=== PATIENT | male | born 1935 | race Caucasian/White ===

== ENCOUNTER 2020-08-27 10:07 | Inpatient (IN) | payer MEDICARE, MEDICAID, SELFPAY ==
[2020-08-27] VITALS (41 sets, daily range): BP systolic 107–152; BP diastolic 46–73; PULSE 54–88; RESP 0–26; TEMP 12.2–37.1; O2SAT 88–100; BMI 21.2
--- NOTE | 2020-08-27 10:17 | ECG_ITS ---
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 Measurements Intervals [place] Rate: 67 P: 57 AK: 189 QRS: 12 QRSD: 96 T: 31 QT: 429 QTc: 453 Interpretive Statements SINUS RHYTHM MINIMAL VOLTAGE CRITERIA FOR LVH, CONSIDER NORMAL VARIANT [MEETS CRITERIA IN ONE OF: R(aVL), S(V1), R(V5), R(V5/V6)+S(V1)] Compared to ECG 03/24/2019 21:07:27 Sinus bradycardia no longer present Electronically Signed On 08-27-2020 19:22:05 CDT by Musa Alves M.D. [id number]
--- NOTE | 2020-08-27 10:20 | ED_ITS ---
HPI - SOB/Dyspnea General: Chief Complaint: Shortness of Breath/Dyspnea Stated Complaint: resp failure Time Seen by Provider: 08/27/20 10:09 History of Present Illness: HPI Narrative: This patient is an 84-year-old male presenting from [facility]. He had a positive cocaine test on or about August 19. He has been receiving treatment at the residential including dexamethasone and prophylactic Lovenox. He was sent to the ED this morning due to increasing oxygen requirements. Per residential staff his oxygen saturation was about 78% on room air. They put him on 2 L of oxygen his oxygen did come up to 94%. He was also borderline hypotensive there with a blood pressure of 96 systolic. EMS treated with IV Solu-Medrol, subcu terbutaline and continued oxygen. On arrival the patient's sats were mid to high 90s on 2 L. Blood pressure is 122/46. Heart rate 66. He is tachypneic but in no overt respiratory distress. He is very hard of hearing and has dementia and is not answering questions. His baseline mental status is apparently much more alert and conversational. MD elicited complaint: shortness of breath Pertinent past history: other (covid) Review of Systems General: Reports: ROS unobtainable due to medical condition [facility] ED PFSH: Medical History (Updated 08/27/20 @ 13:36 by Harrison Bangura MD) Alzheimer disease ASHD (arteriosclerotic heart disease) BPH (benign prostatic hyperplasia) Carotid stenosis, bilateral CKD (chronic kidney disease) CVA (cerebral vascular accident) GERD (gastroesophageal reflux disease) Hyperlipidemia Surgical History (Updated 08/27/20 @ 13:36 by Harrison Bangura MD) S/P carotid endarterectomy S/P hernia repair Family History (Updated 01/17/20 @ 08:41 by Leatha Sebastian RN) Father , AGE 62 CAD (coronary artery disease) Myocardial infarction Physical Exam Const: COMMON NORMALS: no acute distress and alert GENERAL APPEARANCE: cooperative and comfortable HENMT: HEAD & SCALP: normal to inspection FACE & SINUS: normal facial exam Eye: GENERAL EYE: appearance normal, both eyes and all related structures Neck/C-Spine: COMMON NORMALS: supple, no meningeal signs and no JVD Chest: COMMONS NORMALS: normal inspection of the chest Resp: EFFORT & INSPECTION: Yes tachypneic and Yes uses accessory muscles AUSCULTATION: rales (mild, scattered) Cardio: COMMON NORMALS: no JVD, regular rate, regular rhythm and No murmurs present (Cardio) RATE: regular rate RHYTHM: regular rhythm GI: COMMON NORMALS: Normal to inspection, nondistended, normoactive bowel sounds present, Soft to palpation and non-tender INSPECTION: Yes normal to inspection AUSCULTATION: Yes normoactive bowel sounds PALPATION: Yes Soft to palpation Back/Pelvis: COMMON NORMALS: thoracic and lumbar spine normal to inspection Extremity: COMMON NORMALS: normal to inspection Neuro: COMMON NORMALS: moves all extremities, no focal motor deficits and no sensory deficits noted SENSORIUM/ORIENTATION: Yes alert and Yes other (Very hard of hearing, only answering simple questions) MENINGEAL SIGNS: Yes no meningeal signs Psych: COMMON NORMALS: mental status grossly normal, cooperative and normal affect Skin: COMMON NORMALS: no rashes or lesions noted and turgor normal GENERAL SKIN EXAM: no rashes or lesions noted and turgor normal Course ED course: This patient from the residential was reportedly very hypoxic. He has not been hypoxic here and on 2 L of oxygen his sats are in the mid 90s. His main issue seems to be a decreased mental status. He does have dementia but normally is alert and talkative. Today he is most definitely not. I spoke with his son as well as Dr. Teena Funes and confirm that he is a full code. Because of this we will admit him to the hospital to maximize treatment. We will continue him on oxygen and consider remdesivir. 1 dose was given in the ED but as he has not been hypoxic here in the hospital he may not be a good candidate to continue that. Vital Signs: Vital signs: Vital Signs Temperature 97.7 F 08/28/20 00:00 Pulse Rate 60 08/28/20 04:46 Respiratory Rate 27 H 08/28/20 01:40 Blood Pressure 152/73 08/28/20 01:40 Pulse Oximetry 94 08/28/20 04:46 MDM - SOB/Dyspnea Lab Data: Labs: Lab Results 08/27/20 08/27/20 08/27/20 Range/Units 09:47 09:47 09:47 WBC 7.1 (4.0-10.0) 10^3/ uL RBC 4.04 L (4.1-5.3) 10^6/u L Hgb 11.0 L (11.7-16.6) g/dL Hct 36.2 L (42.0-52.0) % MCV 89.6 (80-94) fL MCH 27.2 L (28.0-34.0) pg MCHC 30.4 (30.0-36.0) g/dL RDW 14.2 (12.1-15.1) % Plt Count 177 (130-400) 10^3/c mm MPV 10.1 (7.4-10.4) fL Neut % (Auto) 85.8 % Lymph % (Auto) 7.2 % Kingfisher % (Auto) 6.2 % Eos % (Auto) 0.0 % Baso % (Auto) 0.1 % Neut # (Auto) 6.07 (1.8-7.7) 10^3/u L Lymph # (Auto) 0.5 L (0.8-4.8) 10^3/u L Kingfisher # (Auto) 0.4 (0.2-0.9) 10^3/u L Eos # (Auto) 0.0 (0.0-0.8) 10^3/u L Baso # (Auto) 0.0 (0.0-0.1) 10^3/u L Nucleated RBC % (a uto) 0 % Nucleated RBCs # 0.0 /100WBC PT 13.40 (12.1-14.9) SECO NDS INR 0.99 (0.8-1.2) Fibrinogen 626 H (174-498) mg/dL D-Dimer 0.67 H (0-0.59) ug/mIFE U Sodium 139 (136-145) mmol/L Potassium 3.6 (3.5-5.1) mmol/L Chloride 103 (98-107) mmol/L Carbon Dioxide 27 (22-29) mmol/L Anion Gap 12.6 (5-19) BUN 14 (8-23) mg/dL Creatinine 1.2 (0.7-1.2) mg/dL GFR Calculation Not Reportable Glucose 122 H (65-115) mg/dL Calculated Osmolal ity 290 (285-295) mOsm/k g Lactic Acid (0.5-2.2) mmol/L Calcium 8.8 (8.5-10.5) mg/dL Total Bilirubin 0.4 (0.15-1.2) mg/dL AST 23 (0-40) U/L ALT 18 (0-41) U/L Alkaline Phosphata se 64 (40-130) IU/L C-Reactive Protein 120.5 H (0.0-4.9) mg/L NT-Pro-B Natriuret Pep 837 H (0-450) pg/mL Total Protein 6.3 L (6.6-8.7) g/dL Albumin 3.6 (3.5-5.2) g/dL Globulin 2.7 (1.3-4.6) g/dL Procalcitonin 0.12 (0-0.5) ng/mL TSH (0.27-4.20) uIU/ mL 08/27/20 08/27/20 Range/Units 09:47 11:22 WBC (4.0-10.0) 10^3/ uL RBC (4.1-5.3) 10^6/u L Hgb (11.7-16.6) g/dL Hct (42.0-52.0) % MCV (80-94) fL MCH (28.0-34.0) pg MCHC (30.0-36.0) g/dL RDW (12.1-15.1) % Plt Count (130-400) 10^3/c mm MPV (7.4-10.4) fL Neut % (Auto) % Lymph % (Auto) % Kingfisher % (Auto) % Eos % (Auto) % Baso % (Auto) % Neut # (Auto) (1.8-7.7) 10^3/u L Lymph # (Auto) (0.8-4.8) 10^3/u L Kingfisher # (Auto) (0.2-0.9) 10^3/u L Eos # (Auto) (0.0-0.8) 10^3/u L Baso # (Auto) (0.0-0.1) 10^3/u L Nucleated RBC % (a uto) % Nucleated RBCs # /100WBC PT (12.1-14.9) SECO NDS INR (0.8-1.2) Fibrinogen (174-498) mg/dL D-Dimer (0-0.59) ug/mIFE U Sodium (136-145) mmol/L Potassium (3.5-5.1) mmol/L Chloride (98-107) mmol/L Carbon Dioxide (22-29) mmol/L Anion Gap (5-19) BUN (8-23) mg/dL Creatinine (0.7-1.2) mg/dL GFR Calculation Glucose (65-115) mg/dL Calculated Osmolal ity (285-295) mOsm/k g Lactic Acid 1.3 (0.5-2.2) mmol/L Calcium (8.5-10.5) mg/dL Total Bilirubin (0.15-1.2) mg/dL AST (0-40) U/L ALT (0-41) U/L Alkaline Phosphata se (40-130) IU/L C-Reactive Protein (0.0-4.9) mg/L NT-Pro-B Natriuret Pep (0-450) pg/mL Total Protein (6.6-8.7) g/dL Albumin (3.5-5.2) g/dL Globulin (1.3-4.6) g/dL Procalcitonin (0-0.5) ng/mL TSH 1.85 (0.27-4.20) uIU/ mL Discharge Plan Discharge Patient Disposition: Admitted As Inpatient Admit Provider: Harrison Bangura Clinical Impression: COVID-19 Altered mental state Qualifiers: Altered mental status type: unspecified Qualified Code(s): R41.82 - Altered mental status, unspecified Condition: Stable Discharge Date/Time: 08/27/20 16:42 Coding Level of Care Code ED 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
[2020-08-27 10:34] LABS: Basophils % 0.1 %; Hematocrit 36.2 % (42.0-52.0); Lymphocytes # 0.5 10^3/uL (0.8-4.8); Lymphocytes % 7.2 %; Mean Corpuscular HGB Conc 30.4 g/dL (30.0-36.0); Mean Corpuscular Hemoglobin 27.2 pg (28.0-34.0); Mean Corpuscular Volume 89.6 fL (80-94); Mean Platelet Volume 10.1 fL (7.4-10.4); Monocytes # 0.4 10^3/uL (0.2-0.9); Monocytes % 6.2 %; Neutrophils # 6.07 10^3/uL (1.8-7.7); Neutrophils % 85.8 %; Nucleated Red Blood Cells % 0 %; Platelet Count 177 10^3/cmm (130-400); Red Blood Count 4.04 10^6/uL (4.1-5.3); Red Cell Distribution Width 14.2 % (12.1-15.1); White Blood Count 7.1 10^3/uL (4.0-10.0)
[2020-08-27 10:39] LABS: Fibrinogen 626 mg/dL (174-498); INR 0.99 (0.8-1.2)
[2020-08-27 10:42] LABS: D Dimer 0.67 ug/mIFEU (0-0.59)
[2020-08-27 10:56] LABS: Alanine Aminotransferase 18 U/L (0-41); Albumin Level 3.6 g/dL (3.5-5.2); Alkaline Phosphatase 64 IU/L (40-130); Anion Gap 12.6 (5-19); Aspartate Amino Transferase 23 U/L (0-40); Blood Urea Nitrogen 14 mg/dL (8-23); Calcium 8.8 mg/dL (8.5-10.5); Carbon Dioxide 27 mmol/L (22-29); Chloride 103 mmol/L (98-107); Globulin 2.7 g/dL (1.3-4.6); Glucose 122 mg/dL (65-115); NT Pro B Type Natriuretic Pept 837 pg/mL (0-450); Osmolality Calculated 290 mOsm/kg (285-295); Potassium 3.6 mmol/L (3.5-5.1); Sodium 139 mmol/L (136-145); Total Bilirubin 0.4 mg/dL (0.15-1.2); Total Protein 6.3 g/dL (6.6-8.7)
--- NOTE | 2020-08-27 11:07 | XR_ITS ---
WS: [id number] Portable AP upright chest, 08/27/2020 Clinical Data: COVID, hypoxia Comparison: Portable chest, 03/24/2019. Findings: There are patchy opacities overlying both diaphragms which may represent pneumonia and/or a telectasis. The upper lobes are clear. No nodules, masses or effusions are seen. The heart is normal. The pulmonary vascularity is not increased. No pneumothorax is seen. The aortic arch and descending aorta are tortuous. XR/XR chest 1V portable [id number] Impression: 1. Minimal bilateral patchy opacities which may represent pneumonia and recomme nd follow-up chest x-ray in one to 2 days. 2. Atherosclerosis.
[2020-08-27 11:19] LABS: Procalcitonin 0.12 ng/mL (0-0.5)
[2020-08-27 11:29] LABS: C Reactive Protein 120.5 mg/L (0.0-4.9)
[2020-08-27 12:01] LABS: Lactic Sepsis W/Reflex 1.3 mmol/L (0.5-2.2)
--- NOTE | 2020-08-27 13:32 | CT_ITS ---
WS: [id number] CT CHEST ANGIOGRAPHY WITH REFORMATS HISTORY: covid TECHNIQUE: Contiguous axial images are obtained through the chest during arterial injection of intrav enous contrast. Images are reconstructed to evaluate the pulmonary arteries. MIP imaging also reviewe d. All CT scans at [facility] use at least one of these dose optimization techniques: aut omated exposure control; mA and/or kV adjustment per patient size (includes targeted exams where dose is matched to clinical indication); or iterative reconstruction. CONTRAST: Visipaque 320; 95 mL IV. DLP: 582.67 mGy.cm COMPARISON: None available. No central pulmonary emboli. Very good opacification of the pulmonary arteries through the segmental branches. Subsegmental branches in the lower lung byrne are partially obscured by atelectasis and ai rspace disease. Pulmonary artery size is enlarged. Mild atherosclerosis aorta. No aneurysm or dissect ion. Hyperinflated lungs with mild groundglass attenuation and dependent changes at the lung bases. No den se areas of consolidation. There is mild peripheral groundglass attenuation. 5 mm nodule RIGHT upper lobe. Mildly enlarged hilar mediastinal lymph nodes. High LEFT paratracheal lymph node measures 11 mm . These lymph nodes are probably reactive. Mild enlargement of the heart. No pericardial effusion. No pleural effusion. Mild tricuspid regurgitation into hepatic veins. Large RIGHT renal cysts. No adrenal mass. CT/CT angio chest PE protcl [id number] IMPRESSION: 1. No pulmonary embolism. 2. Mild ground glass attenuation and dependent changes in the lower lung field s. 5 mm RIGHT upper lobe nodule. Recommend follow-up chest CT in 6 months. 3. Mildly reactive lymphadenopathy. 4. Cardiomegaly. 5. Tricuspid regurgitation into hepatic veins.
--- NOTE | 2020-08-27 13:37 | PC.NURSE ---
Attempted to call report and told nurse not here yet.
[2020-08-27 14:27] LABS: Thyroid Stimulating Hormone 1.85 uIU/mL (0.27-4.20)
[2020-08-27] MEDS: iodixanol 320 mg/mL 100mL Btl IV (15:01)
--- NOTE | 2020-08-27 15:25 | PM.HP ---
Providers/Chief Complaint Admitting Physician: Harrison Bangura MD Primary Care Provider: Teena Funes MD Chief Complaint: resp failure History of Present Illness Morgan Martinez is a 84 year old male with past medical history of CVA, BPH, senile dementia, hyperlipidemia who was sent in from [facility] today because of worsening lethargy, mental status, found to be hypoxic to 70.6% on room air and up to 88% on 5 L nasal cannula. As per the nursing staff from [facility] patient tested +10 days ago for COVID-19 pneumonia has been treated with dexamethasone 6 mg and Lovenox 40 mg subcu daily. Patient has not had fever in last 24 to 36 hours. Patient has not had any nausea, vomiting, diarrhea. On examination patient respiratory lethargic, not able to answer any questions is confused, heart rate of 54 bpm, blood pressure 120/50, saturating 96% on 2 L nasal cannula, echo done the oxygen supplementation to 0 and his saturation maintained over 90% for 5 minutes. His blood work showed a white count of 7.1, hemoglobin of 11, platelet of 177, INR of 0.99, fibrinogen 626, d-dimer 0.67, sodium of 139, creatinine of 1.2, CRP of 120, proBNP of 837, chest x-ray showing bilateral patchy opacities concerning for pneumonia. He has been in hospital for treatment of COVID-19 pneumonia. Review of Systems General: Reports: ROS unobtainable due to mental status Medications/Allergies Home Medications Medication Instructions Recorded Confirmed Last Taken Type donepezil 10 mg tablet 10 mg PO DAILY 01/17/20 08/27/20 08/27/20 History finasteride 5 mg tablet 5 mg PO DAILY 01/17/20 08/27/20 08/26/20 History gabapentin 100 mg capsule 100 mg PO BEDTIME 01/17/20 08/27/20 08/26/20 History levothyroxine 25 mcg capsule 25 mcg PO DAILY 01/17/20 08/27/20 08/27/20 History lisinopril 20 mg tablet 20 mg PO DAILY 01/17/20 08/27/20 08/27/20 History loratadine 10 mg tablet 10 mg PO DAILY 01/17/20 08/27/20 08/27/20 History metoprolol tartrate 25 mg tablet 25 mg PO BID 01/17/20 08/27/20 08/27/20 History nitroglycerin 0.4 mg sublingual 0.4 mg SUBLINGUAL Q5M PRN 01/17/20 08/27/20 Unknown History tablet sertraline 25 mg tablet 75 mg PO DAILY tab 01/17/20 08/27/20 08/26/20 History tamsulosin 0.4 mg capsule 0.4 mg PO DAILY 01/17/20 08/27/20 08/26/20 History acetaminophen 650 mg PO Q4H PRN 08/27/20 08/27/20 07/30/20 History bisacodyl 5 mg PO DAILY PRN 08/27/20 08/27/20 Unknown History bisacodyl 10 mg GA DAILY PRN 08/27/20 08/27/20 Unknown History clonidine HCl 0.1 mg PO Q8H PRN 08/27/20 08/27/20 Unknown History enoxaparin [Lovenox] 40 mg SUBCUT DAILY 08/27/20 08/27/20 08/26/20 History hydrocodone-acetaminophen 1 tab PO Q8H PRN 08/27/20 08/27/20 08/26/20 History magnesium hydroxide [Milk of 30 ml PO DAILY 08/27/20 08/27/20 Unknown History Magnesia] ondansetron HCl [Zofran] 4 mg PO Q4H PRN 08/27/20 08/27/20 Unknown History polyethylene glycol 3350 [Miralax] 17 g PO DAILY PRN 08/27/20 08/27/20 Unknown History sodium phosphates [Enema] 118 ml GA DAILY PRN 08/27/20 08/27/20 Unknown History travoprost [Travatan Z] 1 drp OPHTHALMIC (EYE) QPM 08/27/20 08/27/20 08/26/20 History vit C-E-zinc qss-eocynh-eldite 2 tab PO DAILY 08/27/20 08/27/20 08/27/20 [facility] Allergies Allergy/AdvReac Type Severity Reaction Status Date / Time nortriptyline Allergy Unknown Unknown Unverified 01/17/20 08:35 topiramate [From Topamax] Allergy Unknown Unknown Unverified 01/17/20 08:35 PFSH Acute PFSH: Medical History (Updated 08/27/20 @ 13:36 by Harrison Bangura MD) Alzheimer disease ASHD (arteriosclerotic heart disease) BPH (benign prostatic hyperplasia) Carotid stenosis, bilateral CKD (chronic kidney disease) CVA (cerebral vascular accident) GERD (gastroesophageal reflux disease) Hyperlipidemia Surgical History (Updated 08/27/20 @ 13:36 by Harrison Bangura MD) S/P carotid endarterectomy S/P hernia repair Family History (Updated 01/17/20 @ 08:41 by Leatha Sebastian RN) Father , AGE 62 CAD (coronary artery disease) Myocardial infarction Vitals/I&O/Wt Last Vital Signs Temp 98.8 F 08/27/20 10:26 Pulse 75 08/27/20 14:49 Resp 24 H 08/27/20 14:49 BP 122/51 08/27/20 14:49 Pulse Ox 98 08/27/20 14:49 Weight last 48 hrs Weight 70.851 kg Physical Exam Narrative: EXAM NARRATIVE: General: Confused, no acute distress, AO x1, at baseline he is AO x1-2, fairly active as per the nurse HEENT: PERRLA, pupils bilaterally equal and reactive Chest: Bilateral bronchial breath sounds, occasional rhonchi, good air entry bilaterally, saturating 92% on room air CVS: S1-S2 regular, no murmurs, no tachycardia, no gallops, no rubs Abdomen: Soft, nontender, no organomegaly, bowel sounds present Neuro: No focal deficits, no facial deformity, AO x3, power 5/5 in all limbs Data : 08/27/20 09:47 08/27/20 09:47 A&P Assessment and plan (1) COVID-19: Status: Acute (2) Altered mental state: Status: Acute Qualifiers: Altered mental status type: unspecified Qualified Code(s): R41.82 - Altered mental status, unspecified (3) Alzheimer disease: Status: Acute (4) CKD (chronic kidney disease): Status: Acute (5) CVA (cerebral vascular accident): Status: Acute (6) Carotid stenosis, bilateral: Status: Acute Additional A&P Information Acute hypoxic respiratory failure because of COVID-19 pneumonia: As per the prison documentation patient required 5 L nasal cannula supplementation to maintain saturation over 90%. Currently on room air saturating 92%. We will monitor inflammatory markers including fibrinogen, ferritin, d-dimer, CRP, LDH. CTA PE to rule out PE. For now start him on antiviral treatment with Remdesevir for 3 to 5 days. Will discontinue in 3 days if patient is not requiring any oxygen. Dexamethasone 6 mg IV daily. For now start patient on Eliquis 5 mg twice daily. Advair, Spiriva Vitamin C, zinc. Tessalon Perles. Oxygen supplementation keeping saturation 90%. Check blood cultures, sputum culture, urine Legionella, bacterial antigen, sputum culture, MRSA swab, procalcitonin. Chances of bacterial pneumonia are low right now. Start patient on levofloxacin 500 mg daily as per the creatinine clearance for now. Last echocardiogram from 2014 shows an EF of 70% with grade 1 diastolic dysfunction with mild aortic calcification and mild AI. We will repeat an echocardiogram. Normal saline at 50 cc/h for now. Altered mental status: Could be because of viral prodrome or sepsis from COVID-19 along with worsening of Alzheimer's dementia. We will do CT head. ABG stat to rule out hypercapnia. Hypertension: Goal blood pressure less than 140/90 mmHg. For now continue home dose of metoprolol 25 mg twice daily, lisinopril 20 mg daily. Check TSH, iron panel, lipid panel, HbA1c. Patient will be on steroids. Will monitor blood sugar levels and if required will start on insulin sliding scale. Continue other chronic medications like donepezil, levothyroxine 25 mcg, sertraline. History of carotid stenosis, CVA: Patient does not seem to be on any aspirin. We will check lipid panel. Start patient on aspirin 81 mg daily. As per the prison documentation patient is full code. Patient's healthcare proxy is Timur Martinez and Amrik Martinez. #4 Amrik Martinez is [phone]. Full code. Protonix for PUD prophylaxis Cardiac GI soft diet for now. Attestations Medical Necessity Statement*: Admit to viral ICU for more than 2 midnights for altered mental status, COVID-19 pneumonia leading to hypoxia Time Spent in Patient Care: Greater than 35 minutes (>than 50% of time spent in counselling and/or direct pt care on unit). 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
--- NOTE | 2020-08-27 15:29 | PC.NURSE ---
Dr Palmer saw pt at bedside at approx 1515, and placed pt on room air.
[2020-08-27] MEDS: dexamethasone 4 mg/mL INJ 6 MG IVP (15:44)
--- NOTE | 2020-08-27 15:50 | USCV_ITS ---
Morgan Martinez Age: 84 Gender: M : 1935 Exam Date: 08/27/2020 15:55 Ordering Phys: Harrison Bangura MD Technologist: Jeaneth Motta [place] [facility]: COVID WITH SEVERE RESP PROBLEMS BP: / HR: 65 Rhythm: Sinus Technical Quality: Adequate MEASUREMENTS (Male / Female) Normal Values 2D ECHO LV Diastolic Diameter PLAX 2.8 cm 4.2 - 5.9 / 3.9 - 5.3 cm LV Systolic Diameter PLAX 1.7 cm LV Chamber Size 2.7 cm IVS Diastolic Thickness 1.1 cm 0.6 - 1.0 / 0.6 - 0.9 cm IVS Systolic Thickness 1.5 cm LVPW Diastolic Thickness 1.7 cm 0.6 - 1.0 / 0.6 - 0.9 cm LVPW Systolic Thickness 1.9 cm RV Chamber Size 3.1 cm LVOT Diameter 2.0 cm LV Ejection Fraction 2D Teich 70.3 % LA Diameter 4.0 cm LA Width 3.5 cm LA Height 3.7 cm RA Width 3.8 cm RA Height 4.3 cm Aorta at Sinotubular Diameter 3.0 cm M-MODE LV Diastolic Diameter MM 4.9 cm 4.2 - 5.9 / 3.9 - 5.3 cm LV Systolic Diameter MM 2.1 cm LV Ejection Fraction MM Teich 86.5 % IVS Diastolic Thickness MM 1.0 cm 0.6 - 1.0 / 0.6 - 0.9 cm IVS Systolic Thickness MM 1.6 cm LVPW Diastolic Thickness MM 1.6 cm 0.6 - 1.0 / 0.6 - 0.9 cm LVPW Systolic Thickness MM 2.9 cm RV Diastolic Diameter MM 1.5 cm Aortic Annulus Diameter 3.4 cm LA Ao Ratio MM 1.3 MV E Point Septal Separation 0.6 cm DOPPLER AV Peak Velocity 142.0 cm/s LVOT Peak Velocity 87.0 cm/s AV Area Cont Eq vti 2.2 cm squared AV Area Cont Eq pk 2.0 cm squared MV Area PHT 3.4 cm squared Mitral E to A Ratio 1.2 MV E' Velocity 42.5 cm/s Mitral E to MV E' Ratio 13.3 Mitral E to LV E' Lateral Ratio 12.9 Mitral E to LV E' Septal Ratio 14.0 TR Peak Velocity 260.5 cm/s TR Peak Gradient 27.1 mmHg TR Mean Velocity 182.8 cm/s TR Mean Gradient 15.6 mmHg TR Velocity Time Integral 80.8 cm TV Peak E Velocity 76.0 cm/s Right Atrial Pressure 3.0 mmHg Pulmonary Artery Systolic Pressu 30.1 mmHg PV Peak Velocity 82.0 cm/s RV Acceleration Time 0.1 s RV Ejection Time 0.3 s RV AcT/ET 0.4 FINDINGS Left Ventricle Normal left ventricular cavity size. Normal left ventricular systolic function. No regional wall motion abnormalities. Left ventricular ejection fraction is estimated at 70 %. and hyperdynamic Grade II/IV diastolic dysfunction, moderately elevated filling pressures. Right Ventricle The right ventricle is normal in size and function. Right Atrium The right atrium is normal in size. Left Atrium The left atrium is normal in size. Mitral Valve Structurally normal mitral valve without significant stenosis or prolapse. There is no mitral regurgitation. Aortic Valve Structurally normal aortic valve without significant sclerosis or stenosis. There is no aortic regurgitation. Tricuspid Valve Structurally normal tricuspid valve without significant stenosis or regurgitation. Pulmonary artery systolic pressure is normal. Pulmonic Valve Structurally normal pulmonic valve without significant stenosis. There is no pulmonic regurgitation. Pericardium Normal pericardium without effusion. Aorta Normal ascending aorta dimension. CONCLUSIONS 1-Normal left ventricular cavity size. Normal left ventricular systolic function. No regional wall motion abnormalities. Left ventricular ejection fraction is estimated at 70 %. and hyperdynamic Grade II/IV diastolic dysfunction, moderately elevated filling pressures. 2-There is no pericardial effusion. 3-Pulmonary artery systolic pressure is within normal limits. 4-No significant valve abnormalities. 5-Right atrial pressure is around 5 mm of mercury. 6-No significant change since the prior echocardiogram study of 03/17/2015. Neftaly Finley MD (Electronically Signed) Final Date: 27 August 2020 17:39 S
[2020-08-27 16:09] LABS: ABG PCO2 42.9 mmHg (35-45); ABG PH Result 7.36 (7.35-7.45); Base Excess ABG -1.2 mmol/L (-2.0-2.0); HCO3 ABG 24.3 mmol/L (22-26); PO2 ABG 60.1 mmHg (80.0-100.0)
[2020-08-27 16:10] LABS: Blood Gas Operator Identificat MONRO; Oxygen Device NC; Oxygen Saturation ABG 91.2; Potassium Level - ABG 3.7 mmol/L (3.5-5.0)
[2020-08-27 16:11] LABS: Arterial Blood Gas Hematocrit 35.4 % (42-52); Blood Gas Sample Site R RADIAL; Blood Gas Sample Type ARTERIAL; Ionized Calcium Level - ABG 1.2 mmol/L (1.1-1.4)
[2020-08-27 16:12] LABS: Carboxyhemoglobin 0.8 %THgb (0.4-20.1); HGB O2 Sat 90.4 % (95-100); Methemoglobin 0.1 % (0.4-1.5); Total Hemoglobin 11.5 g/dL (14-18)
--- NOTE | 2020-08-27 16:15 | PC.NURSE ---
Called VICU unit at 1615, informed ED that they still not ready for patient
[2020-08-27] MEDS: sodium chloride 0.9% 1,000 ML 50 ML IV (18:07)
[2020-08-27] MEDS: benzonatate 100 mg Capsule PO (18:07)
[2020-08-27] MEDS: metoprolol tartrate 25 mg Tablet PO (18:26)
[2020-08-27] MEDS: apixaban 5 mg Tablet PO (18:26)
[2020-08-27] MEDS: azithromycin 500 MG in sodium chloride 0.9% 250 ML 250 MG IV (18:27)
--- NOTE | 2020-08-27 18:40 | PC.RESP ---
Attempted to start Incentive spirometer and acapella, patient confused, unable to hear due to hearing aid batteries being , and unable to follow commands at this time. RT will try again.
[2020-08-27] MEDS: LORazepam 2 mg/mL INJ 1 mL 1 MG IM (20:04)
--- NOTE | 2020-08-27 20:20 | PC.NURSE ---
This nurse responded to bed alarm of the patient, and found patient trying to climb out of bed, patient was confused. Nurse assisted the patient back into the bed but the patient grabbed the nurses forearms and squeezed them screaming, 'this is not right, Lord help me . This nurse and other nursing staff attempted to calm patient but patient is hard of hearing and seemed to not hear anything nursing staff was saying. The patient ripped out IV in the right forearm and began bleeding on bed linens, PT had soiled underwear and needed changed. 3 nursing staff assisted pt to bedside commode, changed linens, and changed pt clothing. The patient continued to yell and aggressively grab nursing staff and squeeze their arms. Provider Dr. Warren was notified and new orders were received. This nurse administered 1 mg Ativan IM in the left deltoid. PT was assisted back to bed and BROILER SUPERVISOR stayed at the bedside until pt was asleep. Bed alarm on.
[2020-08-28] VITALS (42 sets, daily range): BP systolic 149–191; BP diastolic 56–88; PULSE 0–81; RESP 1–29; TEMP 36.4–36.9; O2SAT 89–97
--- NOTE | 2020-08-28 03:27 | PC.NURSE ---
Morphine 2 mg IV given for back pain. Patient was grunting. Changed position to left side.
[2020-08-28 04:45] LABS: ABG PCO2 41.5 mmHg (35-45); ABG PH Result 7.41 (7.35-7.45); Arterial Blood Gas Hematocrit 34.1 % (42-52); Base Excess ABG 1.6 mmol/L (-2.0-2.0); Blood Gas Allen Test Pos; Blood Gas Sample Site Radial, left; Blood Gas Sample Type Arterial; HCO3 ABG 26.4 mmol/L (22-26); Oxygen Device NC; PO2 ABG 61.3 mmHg (80.0-100.0)
--- NOTE | 2020-08-28 06:00 | XR_ITS ---
WS: [id number] Portable AP upright chest, 08/28/2020 Clinical Data: covid Comparison: 08/27/2020 Findings: Bilateral patchy lower lobe opacities are still present. No nodules, masses or effusions ar e seen. The heart is normal. The pulmonary vascularity is not increased. No pneumothorax is seen. Th e aortic arch and descending aorta are tortuous. The diaphragms are flattened. XR/XR chest 1V portable [id number] Impression: 1. Bilateral lower lobe patchy opacities unchanged which are consistent with pn eumonia. 2. Hyperinflation and atherosclerosis.
[2020-08-28 07:16] LABS: Fibrinogen 554 mg/dL (174-498)
[2020-08-28 07:17] LABS: Hematocrit 27.7 % (42.0-52.0); Hemoglobin 8.6 g/dL (11.7-16.6); Lymphocytes # 0.5 10^3/uL (0.8-4.8); Lymphocytes % 8.2 %; Mean Corpuscular Hemoglobin 27.5 pg (28.0-34.0); Mean Corpuscular Volume 88.5 fL (80-94); Mean Platelet Volume 10.2 fL (7.4-10.4); Monocytes # 0.2 10^3/uL (0.2-0.9); Monocytes % 3.5 %; Nucleated Red Blood Cells % 0 %; Platelet Count 204 10^3/cmm (130-400); Red Blood Count 3.13 10^6/uL (4.1-5.3); Red Cell Distribution Width 14.3 % (12.1-15.1)
[2020-08-28 07:25] LABS: Alanine Aminotransferase 15 U/L (0-41); Albumin Level 3.5 g/dL (3.5-5.2); Alkaline Phosphatase 62 IU/L (40-130); Anion Gap 14.8 (5-19); Aspartate Amino Transferase 18 U/L (0-40); Blood Urea Nitrogen 18 mg/dL (8-23); Calcium 8.3 mg/dL (8.5-10.5); Carbon Dioxide 25 mmol/L (22-29); Chloride 104 mmol/L (98-107); Globulin 2.2 g/dL (1.3-4.6); Glucose 133 mg/dL (65-115); Magnesium 1.9 mg/dL (1.7-2.3); Osmolality Calculated 294 mOsm/kg (285-295); Phosphorus 3.1 mg/dL (2.5-4.5); Potassium 3.8 mmol/L (3.5-5.1); Sodium 140 mmol/L (136-145); Total Bilirubin 0.4 mg/dL (0.15-1.2); Total Protein 5.7 g/dL (6.6-8.7)
[2020-08-28 07:27] LABS: Creatine Phosphokinase 119 U/L (39-308); Ferritin 227 ng/mL (30-400); Lactate Dehydrogenase 220 U/L (135-225); NT Pro B Type Natriuretic Pept 758 pg/mL (0-450)
[2020-08-28 07:37] LABS: Estmated Average Glucose 108; Hemoglobin A1C 5.4 % (4.0-6.0)
--- NOTE | 2020-08-28 08:19 | PC.RESP ---
PATIENT RESIDES IN A SNF AND DOES NOT QUALIFY FOR PULMONARY REHAB AT THIS TIME.
[2020-08-28] MEDS: ascorbic acid 500 mg Tablet PO (09:50)
[2020-08-28] MEDS: apixaban 5 mg Tablet PO ×2 (09:50→17:23)
[2020-08-28] MEDS: benzonatate 100 mg Capsule PO ×3 (09:51→22:23)
[2020-08-28] MEDS: finasteride 5 mg Tablet PO (09:52)
[2020-08-28] MEDS: pantoprazole DR 40 mg Tablet PO (09:53)
[2020-08-28] MEDS: metoprolol tartrate 25 mg Tablet PO (09:53)
[2020-08-28] MEDS: lisinopril 20 mg Tablet PO (09:53)
[2020-08-28] MEDS: loratadine 10 mg Tablet PO (09:53)
[2020-08-28] MEDS: levothyroxine 25 mcg Tablet PO (09:53)
[2020-08-28] MEDS: HYDROcodone-acetaminophen 10-325 mg Tablet 1 TAB PO ×2 (09:55→17:24)
[2020-08-28] MEDS: zinc gluconate 50 mg Tablet PO (09:55)
[2020-08-28] MEDS: sertraline 50 mg Tablet 75 MG PO (09:55)
[2020-08-28] MEDS: tamsulosin 0.4 mg Capsule PO (09:55)
--- NOTE | 2020-08-28 10:53 | P.PN_ITS ---
Subjective Subjective: Interval history: Overnight patient has remained confused and sometimes agitated. He required Ativan. He is not requiring any oxygen to maintain his saturation over 90%. On my examination he is calm and comfortably lying in bed. He is not in any distress. He is still confused. Patient is not able to participate in pulmonary toilet with Acapella or incentive spirometry. He is not able to participate in taking inhalation treatment as well. He denies any nausea, vomiting, headache. As per the nursing staff patient did have his meal. Vitals/I&O/Wt Last Vital Signs Temp 97.6 F 08/28/20 08:00 Pulse 60 08/28/20 08:56 Resp 22 H 08/28/20 08:56 BP 154/88 08/28/20 08:00 Pulse Ox 91 08/28/20 08:56 08/27/20 08/28/20 08/28/20 22:59 06:59 14:59 Intake Total 100 / 100 Balance 100 / 100 Weight last 48 hrs Weight 68.402 kg Weight 70.851 kg Physical Exam Narrative: EXAM NARRATIVE: General: Confused, no acute distress, AO x1, at baseline he is AO x1-2, fairly active as per the nurse HEENT: PERRLA, pupils bilaterally equal and reactive Chest: Bilateral bronchial breath sounds, occasional rhonchi, good air entry bilaterally, saturating 92% on room air CVS: S1-S2 regular, no murmurs, no tachycardia, no gallops, no rubs Abdomen: Soft, nontender, no organomegaly, bowel sounds present Neuro: No focal deficits, no facial deformity, AO x3, power 5/5 in all limbs Data : 08/28/20 04:15 08/28/20 04:15 Micro: Microbiology 08/27/20 16:46 Blood Culture - Preliminary Blood SPECIMEN COLLECTED 08/27/20 16:46 Blood Culture - Preliminary Blood SPECIMEN COLLECTED A&P Assessment and plan (1) COVID-19: Status: Acute (2) Altered mental state: Status: Acute Qualifiers: Altered mental status type: unspecified Qualified Code(s): R41.82 - Alt ered mental status, unspecified (3) Alzheimer disease: Status: Acute (4) CKD (chronic kidney disease): Status: Acute (5) CVA (cerebral vascular accident): Status: Acute (6) Carotid stenosis, bilateral: Status: Acute Additional A&P Information COVID-19 pneumonia: Hypoxia resolved and currently patient continues to maintain saturation on room air. We will monitor inflammatory markers including fibrinogen, ferritin, d-dimer, CRP, LDH. CTA PE to rule out PE. For now start him on antiviral treatment with Remdsivir for 3 to 5 days. For now we will plan to continue treatment for 3 days. Day 2 today. Dexamethasone 6 mg IV daily. Eliquis 5 mg twice daily. Advair, Spiriva Vitamin C, zinc. Tessalon Perles. Oxygen supplementation keeping saturation 90%. Procalcitonin, blood cultures have remained negative. All other tests results awaited. Chances of bacterial pneumonia are low right now. Start patient on levofloxacin 500 mg daily as per the creatinine clearance for now. Echocardiogram shows an EF of 70% with grade 2 diastolic dysfunction normal pulmonary artery pressures. Patient is euvolemic. Altered mental status: Could be because of viral prodrome or sepsis from COVID- 19 along with worsening of Alzheimer's dementia. We will do CT head. No hypercapnia on ABG. Hypertension: Goal blood pressure less than 140/90 mmHg. Blood pressure elevated. Patient's heart rate is going down to high 50s. Decrease metoprolol dose to 12.5 mg twice daily, continue with lisinopril 20 mg daily. Add amlodipine 10 mg daily first dose right now. Continue other chronic medications like donepezil, levothyroxine 25 mcg, sertraline. History of carotid stenosis, CVA: Patient does not seem to be on any aspirin. We will check lipid panel. Start patient on aspirin 81 mg daily. As per the senior living documentation patient is full code. Patient's healthcare proxy is Timur Martinez and Amrik Martinez. Discussed patient's CODE STATUS and goals of care with his DPOAE . Timur Martinez. He states patient had told him specifically in the past that his wishes are not to be intubated or be on a life support or any kind of chest compressions. CODE STATUS changed to system to DNR/DNI. Full code. Protonix for PUD prophylaxis Cardiac diet for now. Attestations Medical Necessity Statement*: COVID-19, Altered mental status Time Spent in Patient Care: Greater than 35 minutes (>than 50% of time spent in counselling and/or direct pt care on unit) . 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
[2020-08-28] MEDS: amlodipine 10 mg Tablet PO (14:49)
--- NOTE | 2020-08-28 15:34 | CT_ITS ---
WS: [id number] CT HEAD TECHNIQUE: Noncontrast CT of the head obtained from the skullbase to the vertex. CLINICAL INFORMATION: ams COMPARISON: None. DLP: 1350.[address] scans at [facility] use at least one of these dose optimization techniques: automat ed exposure control; mA and/or kV adjustment per patient size (includes targeted exams where dose is matched to clinical indication); or iterative reconstruction. FINDINGS: No evidence of intracranial hemorrhage or mass effect. Ventricular system and basal cisterns are avila nt. Moderate small vessel changes moderate parenchymal volume loss. Chronic infarct right parietal lo be with encephalomalacia. Additional small chronic infarct in the right frontoparietal junction. No e xtra-axial fluid collections. No evidence of mass or mass effect. Normal munoz-white differentiation. Paranasal sinuses and mastoid air cells are well aerated. .Normal visualized soft tissues. CT/CT head wo con* [id number] IMPRESSION: 1. No evidence of intracranial hemorrhage or mass effect. 2. Moderate small vessel changes moderate parenchymal volume loss. 3. Chronic infarcts in the right parietal lobe with encephalomalacia. 4. No acute intracranial findings.
[2020-08-28] MEDS: dexamethasone 4 mg/mL INJ 6 MG IVP (15:39)
--- NOTE | 2020-08-28 16:07 | PC.NURSE ---
TAKEN TO CT SCAN WITH SECURITY & NURSE ESCORT. TAKEN PER WHEELCHAIR. TOLERATED WELL. CAN'T HEAR MUCH OF ANYTHING SAID TO HIM., BACK TO VICU WITHOUT INCIDENT.
[2020-08-28] MEDS: metoprolol tartrate 25 mg Tablet 12.5 MG PO (17:23)
[2020-08-28] MEDS: haloperidol inj 5 mg/mL INJ 1 mL 1 MG IM (17:54)
[2020-08-28] MEDS: donepezil 5 MG Tablet 10 MG PO (22:24)
[2020-08-28] MEDS: gabapentin 100 mg Capsule PO (22:24)
[2020-08-29] VITALS (20 sets, daily range): BP systolic 140–185; BP diastolic 58–124; PULSE 52–97; RESP 14–27; TEMP 36.7–36.8; O2SAT 92–99
[2020-08-29 02:40] LABS: Urine Appearance Clear (CLEAR); Urine Color Yellow (Yellow); pH Urine 6 (5-7)
[2020-08-29 02:41] LABS: Bilirubin Urine Neg (Negative); Blood Urine 3+ (Negative); Glucose Urine UA Norm (Normal); Ketones Urine Negative (Negative); Leukocyte Esterase Urine Negative (Negative); Nitrate Urine Negative (Negative); Protein Urine Neg (Negative); Urobilinogen Urine Norm (Negative)
[2020-08-29 02:42] LABS: RBC Urine 0-4 /hpf (0-2); Squamous Epithelial Cell Urine 0-4 /hpf (0-5); WBC Urine 0-4 /hpf (0-5)
[2020-08-29 02:43] LABS: Add Urine Culture? No; Amorphous Sediment Urine 2+ /hpf; Bacteria Urine 1+ /hpf
[2020-08-29 04:50] LABS: Basophils % 0.2 %; Hematocrit 36.5 % (42.0-52.0); Hemoglobin 11.4 g/dL (11.7-16.6); Lymphocytes # 0.7 10^3/uL (0.8-4.8); Lymphocytes % 5.2 %; Mean Corpuscular HGB Conc 31.2 g/dL (30.0-36.0); Mean Corpuscular Hemoglobin 27.5 pg (28.0-34.0); Mean Corpuscular Volume 88.2 fL (80-94); Monocytes # 0.4 10^3/uL (0.2-0.9); Monocytes % 3.3 %; Neutrophils # 11.27 10^3/uL (1.8-7.7); Neutrophils % 90.7 %; Nucleated Red Blood Cells % 0 %; Platelet Count 236 10^3/cmm (130-400); Red Blood Count 4.14 10^6/uL (4.1-5.3); Red Cell Distribution Width 14.2 % (12.1-15.1); White Blood Count 12.4 10^3/uL (4.0-10.0)
[2020-08-29 05:00] LABS: Alanine Aminotransferase 16 U/L (0-41); Albumin Level 3.8 g/dL (3.5-5.2); Alkaline Phosphatase 65 IU/L (40-130); Anion Gap 12.9 (5-19); Aspartate Amino Transferase 29 U/L (0-40); Blood Urea Nitrogen 22 mg/dL (8-23); Calcium 8.8 mg/dL (8.5-10.5); Carbon Dioxide 27 mmol/L (22-29); Chloride 104 mmol/L (98-107); Globulin 2.4 g/dL (1.3-4.6); Glucose 129 mg/dL (65-115); Osmolality Calculated 295 mOsm/kg (285-295); Potassium 3.9 mmol/L (3.5-5.1); Sodium 140 mmol/L (136-145); Total Bilirubin 0.3 mg/dL (0.15-1.2); Total Protein 6.2 g/dL (6.6-8.7)
[2020-08-29 05:02] LABS: C Reactive Protein 58.9 mg/L (0.0-4.9); Creatine Phosphokinase 311 U/L (39-308); Ferritin 272 ng/mL (30-400); Lactate Dehydrogenase 229 U/L (135-225); NT Pro B Type Natriuretic Pept 893 pg/mL (0-450)
[2020-08-29 05:03] LABS: Fibrinogen 461 mg/dL (174-498)
[2020-08-29 05:05] LABS: D Dimer 1.06 ug/mIFEU (0-0.59)
[2020-08-29] MEDS: levoFLOXacin 500 mg Tablet PO (06:10)
--- NOTE | 2020-08-29 08:03 | XRR_ITS ---
PROCEDURE INFORMATION: Exam: XR Chest, 1 View Exam date and time: 08/29/2020 11:14 AM Age: 84 years old Clinical indication: Shortness of breath; Additional info: Pna TECHNIQUE: Imaging protocol: XR of the chest Views: 1 view. COMPARISON: CR XR chest 1V portable [id number] 08/28/2020 5:52 AM FINDINGS: Lungs: There are again diffusely increased interstitial markings with patchy opacities at the lung bases, similar to prior. No dense lobar consolidation. Pleural space: Unremarkable. No evidence of pleural effusion or pneumothorax. Heart/Mediastinum: Unremarkable. No cardiomegaly. Bones/joints: Unremarkable. XR/XR chest 1V portable [id number] IMPRESSION: No significant interval change nonspecific increase in markings with mild patchy basilar opacities consistent with atypical pneumonia.
[2020-08-29] MEDS: apixaban 5 mg Tablet PO ×2 (09:16→18:55)
[2020-08-29] MEDS: benzonatate 100 mg Capsule PO ×3 (09:16→20:48)
[2020-08-29] MEDS: metoprolol tartrate 25 mg Tablet 12.5 MG PO ×2 (09:16→18:55)
[2020-08-29] MEDS: pantoprazole DR 40 mg Tablet PO (09:16)
[2020-08-29] MEDS: finasteride 5 mg Tablet PO (09:17)
[2020-08-29] MEDS: ascorbic acid 500 mg Tablet PO (09:17)
[2020-08-29] MEDS: loratadine 10 mg Tablet PO (09:17)
[2020-08-29] MEDS: tamsulosin 0.4 mg Capsule PO (09:17)
[2020-08-29] MEDS: lisinopril 20 mg Tablet PO (09:17)
[2020-08-29] MEDS: sertraline 50 mg Tablet 75 MG PO (09:17)
[2020-08-29] MEDS: levothyroxine 25 mcg Tablet PO (09:17)
[2020-08-29] MEDS: zinc gluconate 50 mg Tablet PO (09:17)
[2020-08-29] MEDS: amlodipine 10 mg Tablet PO (09:17)
[2020-08-29] MEDS: HYDROcodone-acetaminophen 10-325 mg Tablet 1 TAB PO ×3 (09:22→23:12)
--- NOTE | 2020-08-29 14:19 | PM.PN ---
Subjective Subjective: Interval history: No acute events overnight. Patient has remained confused. Which as per nursing staff and patient's son is his baseline. He has been. He is hard of hearing. Has remained on room air. As per the nurse he did not eat well. No further diarrhea. Vitals and labs noted. Vitals/I&O/Wt Last Vital Signs Temp 98.1 F 08/29/20 04:00 Pulse 65 08/29/20 11:35 Resp 16 08/29/20 11:35 BP 177/76 08/29/20 08:00 Pulse Ox 96 08/29/20 10:20 08/28/20 08/29/20 08/29/20 22:59 06:59 14:59 Intake Total 100 / 300 340 / 340 Output Total 120 / 120 0 / 120 400 / 400 Balance -20 / 180 0 / 180 -60 / -60 Weight last 48 hrs Weight 68.039 kg Weight 68.402 kg Physical Exam Narrative: EXAM NARRATIVE: General: Confused, no acute distress, AO x1, at baseline he is AO x1-2, fairly active as per the nurse HEENT: PERRLA, pupils bilaterally equal and reactive Chest: Bilateral bronchial breath sounds, occasional rhonchi, good air entry bilaterally, saturating 92% on room air CVS: S1-S2 regular, no murmurs, no tachycardia, no gallops, no rubs Abdomen: Soft, nontender, no organomegaly, bowel sounds present Neuro: No focal deficits, no facial deformity, AO x3, power 5/5 in all limbs Data : 08/29/20 03:45 08/29/20 03:45 Micro: Microbiology 08/28/20 14:30 Enteric Pathogens (PCR) - Final Stool Routine Collection Parasite Antigen Panel - Final C.difficile Toxin B Gene (PCR) - Final 08/27/20 14:30 MRSA Culture - Final Nose 08/29/20 00:28 Bacterial Antigens - Final Urine Kidney 08/29/20 00:28 Legionella Urinary Antigen - Final Urine,Voided 08/27/20 16:46 Blood Culture - Preliminary Blood NEGATIVE TO DATE 08/27/20 16:46 Blood Culture - Preliminary Blood NEGATIVE TO DATE A&P Assessment and plan (1) COVID-19: Status: Acute (2) Altered mental state: Status: Acute Qualifiers: Altered mental status type: unspecified Qualified Code(s): R41.82 - Altered mental status, unspecified (3) Alzheimer disease: Status: Acute (4) CKD (chronic kidney disease): Status: Acute (5) CVA (cerebral vascular accident): Status: Acute (6) Carotid stenosis, bilateral: Status: Acute Additional A&P Information COVID-19 pneumonia: Hypoxia resolved and currently patient continues to maintain saturation on room air. We will monitor inflammatory markers including fibrinogen, ferritin, d-dimer, CRP, LDH. CTA PE to rule out PE. For now start him on antiviral treatment with Remdsivir and will finish a 3-day course. Last dose today. Patient has remained on room air. Her his mentation is baseline as well. Dexamethasone 6 mg IV daily. Eliquis 5 mg twice daily. Most likely will get Eliquis for next 2 weeks. Advair, Spiriva Vitamin C, zinc. Tessalon Perles. Oxygen supplementation keeping saturation over 90%. Procalcitonin, blood cultures have remained negative. Patient's white count mildly elevated today. Will repeat chest x-ray and procalcitonin. No other signs of infection for now. Chances of bacterial pneumonia are low. For now continue with levofloxacin to finish a 5-day course. Echocardiogram shows an EF of 70% with grade 2 diastolic dysfunction normal pulmonary artery pressures. Patient is euvolemic. Altered mental status: Could be because of viral prodrome or sepsis from COVID-19 along with worsening of Alzheimer's dementia. We will do CT head. No hypercapnia on ABG. Hypertension: Goal blood pressure less than 140/90 mmHg. Blood pressure elevated. Patient's heart rate is going down to high 50s. Continue with decreased dose of metoprolol 25 mg twice daily, lisinopril 20 mg daily. Added amlodipine today. We will continue to monitor. Continue other chronic medications like donepezil, levothyroxine 25 mcg, sertraline. History of carotid stenosis, CVA: Patient does not seem to be on any aspirin. We will check lipid panel. As per the [facility]pc documentation patient is full code. Patient's healthcare proxy is Timur Silvaon and Amrik Martinez. Discussed patient's CODE STATUS and goals of care with his DPOAE Mr. Timur Martinez. He states patient had told him specifically in the past that his wishes are not to be intubated or be on a life support or any kind of chest compressions. CODE STATUS changed to system to DNR/DNI. Protonix for PUD prophylaxis Cardiac diet for now. Attestations Medical Necessity Statement*: Altered mental status, COVID-19 pneumonia, hypoxia resolved Time Spent in Patient Care: Greater than 35 minutes (>than 50% of time spent in counselling and/or direct pt care on unit). 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
[2020-08-29] MEDS: dexamethasone 4 mg/mL INJ 6 MG IVP (14:27)
[2020-08-29 15:05] LABS: Procalcitonin 0.18 ng/mL (0-0.5)
[2020-08-29] MEDS: donepezil 5 MG Tablet 10 MG PO (20:48)
[2020-08-29] MEDS: gabapentin 100 mg Capsule PO (20:48)
[2020-08-30] VITALS: BP 183/79; PULSE 78; RESP 16; O2SAT 92
[2020-08-30] MEDS: acetaminophen 325 mg Tablet 650 MG PO (03:38)
[2020-08-30 04:00] VITALS: BP 163/73; PULSE 60; RESP 16; TEMP 36.9; O2SAT 92
--- NOTE | 2020-08-30 05:37 | PC.NURSE ---
PT IS A 1:1. PT IS CONFUSED AND NEEDS CONSTANT REDIRECTION. PT WAS UP AND DOWN THROUGHOUT THE NIGHT. PT C/O PAIN PRN NORCO WAS GIVEN. PT ALSO HAD SOME HALLUCINATIONS STATES THAT THEY ARE ACTIVELY SEEING BUGS. TECH REDIRECTED PT. PT IS ANXIOUS AND WANTS TO LEAVE. WILL CONTINUE TO MONITOR.
--- NOTE | 2020-08-30 06:00 | XRR_ITS ---
PROCEDURE INFORMATION: Exam: XR Chest, 1 View Exam date and time: 08/30/2020 5:15 AM Age: 84 years old Clinical indication: Other: Respiratory failure; Additional info: Covid TECHNIQUE: Imaging protocol: XR of the chest Views: 1 view. COMPARISON: CR XR chest 1V portable [id number] 08/29/2020 11:13 AM FINDINGS: Lungs: There are again diffusely increased interstitial markings similar to prior. Patchy alveolar opacity at the left lateral lung base again noted. Slight improvement aeration right lung base. Pleural space: Unremarkable. No evidence of pleural effusion or pneumothorax. Heart/Mediastinum: Cardiac silhouette upper normal. Bones/joints: Unremarkable. XR/XR chest 1V portable [id number] IMPRESSION: Diffusely increased interstitial markings with small patchy alveolar opacity left lateral lung base, unchanged. Slight improvement aeration right lung base. No new abnormality.
[2020-08-30 06:22] LABS: Basophils % 0.1 %; Hematocrit 37.2 % (42.0-52.0); Hemoglobin 11.7 g/dL (11.7-16.6); Lymphocytes # 0.6 10^3/uL (0.8-4.8); Lymphocytes % 5.3 %; Mean Corpuscular HGB Conc 31.5 g/dL (30.0-36.0); Mean Corpuscular Hemoglobin 27.2 pg (28.0-34.0); Mean Corpuscular Volume 86.5 fL (80-94); Mean Platelet Volume 9.7 fL (7.4-10.4); Monocytes # 0.5 10^3/uL (0.2-0.9); Monocytes % 4.8 %; Neutrophils # 9.89 10^3/uL (1.8-7.7); Neutrophils % 89.4 %; Nucleated Red Blood Cells % 0 %; Platelet Count 289 10^3/cmm (130-400); Red Cell Distribution Width 14.1 % (12.1-15.1); White Blood Count 11.1 10^3/uL (4.0-10.0)
[2020-08-30 07:01] LABS: Alanine Aminotransferase 17 U/L (0-41); Albumin Level 3.5 g/dL (3.5-5.2); Alkaline Phosphatase 87 IU/L (40-130); Aspartate Amino Transferase 33 U/L (0-40); Blood Urea Nitrogen 21 mg/dL (8-23); Calcium 8.9 mg/dL (8.5-10.5); Carbon Dioxide 24 mmol/L (22-29); Chloride 104 mmol/L (98-107); Globulin 2.9 g/dL (1.3-4.6); Glucose 114 mg/dL (65-115); Osmolality Calculated 294 mOsm/kg (285-295); Sodium 140 mmol/L (136-145); Total Bilirubin 0.4 mg/dL (0.15-1.2); Total Protein 6.4 g/dL (6.6-8.7)
[2020-08-30 07:10] LABS: Anion Gap 16.2 (5-19); C Reactive Protein 28.7 mg/L (0.0-4.9); Ferritin 222 ng/mL (30-400); NT Pro B Type Natriuretic Pept 564 pg/mL (0-450); Potassium 4.2 mmol/L (3.5-5.1)
[2020-08-30 07:55] LABS: Lactate Dehydrogenase 285 U/L (135-225)
[2020-08-30 08:00] VITALS: BP 148/82; PULSE 60; RESP 18; TEMP 36.6; O2SAT 93
[2020-08-30] MEDS: amlodipine 10 mg Tablet PO (08:57)
[2020-08-30] MEDS: levothyroxine 25 mcg Tablet PO (08:57)
[2020-08-30] MEDS: apixaban 5 mg Tablet PO (08:57)
[2020-08-30] MEDS: benzonatate 100 mg Capsule PO (08:57)
[2020-08-30] MEDS: ascorbic acid 500 mg Tablet PO (08:57)
[2020-08-30] MEDS: lisinopril 20 mg Tablet PO (08:57)
[2020-08-30] MEDS: finasteride 5 mg Tablet PO (08:57)
[2020-08-30] MEDS: tamsulosin 0.4 mg Capsule PO (08:58)
[2020-08-30] MEDS: loratadine 10 mg Tablet PO (08:58)
[2020-08-30] MEDS: metoprolol tartrate 25 mg Tablet 12.5 MG PO (08:58)
[2020-08-30] MEDS: pantoprazole DR 40 mg Tablet PO (08:58)
[2020-08-30] MEDS: sertraline 50 mg Tablet 75 MG PO (08:58)
[2020-08-30] MEDS: zinc gluconate 50 mg Tablet PO (08:59)
[2020-08-30 09:50] VITALS: PULSE 62; RESP 18; O2SAT 94
--- NOTE | 2020-08-30 09:58 | PC.SOCIAL ---
Pg 2 IMM Explained to pt's family Pg 2 IMM, via phone. No questions voiced. Signed, dated, & timed copy for chart.
--- NOTE | 2020-08-30 11:02 | P.DS_ITS ---
Discharge Providers Date of Admission: 08/27/20 13:18 Date of Discharge: August 30, 2020 Attending Provider at Admission: Harrison Bangura MD Attending Provider at Discharge: Harrison Bangura MD Primary Care Provider: Teena Funes MD Diagnoses at Discharge Discharge Diagnosis (1) COVID-19: Status: Acute (2) Altered mental state: Status: Acute Qualifiers: Altered mental status type: unspecified Qualified Code(s): R41.82 - Altered mental status, unspecified (3) Alzheimer disease: Status: Acute (4) CKD (chronic kidney disease): Status: Acute (5) CVA (cerebral vascular accident): Status: Acute (6) Carotid stenosis, bilateral: Status: Acute Reason for Visit Reason for Visit: resp failure Hospital Course Discharge Summary: Morgan Martinez is a 84 year old male with past medical history of CVA, BPH, senile dementia, hyperlipidemia who was sent in from [facility] today because of worsening lethargy, mental status, found to be hypoxic to 70.6% on room air and up to 88% on 5 L nasal cannula. As per the nursing staff from [facility] patient tested +10 days ago for COVID-19 pneumonia has been treated with dexamethasone 6 mg and Lovenox 40 mg subcu daily. Patient has not had fever in last 24 to 36 hours. Patient has not had any nausea, vomiting, diarrhea. On examination patient respiratory lethargic, not able to answer any questions is confused, heart rate of 54 bpm, blood pressure 120/50, saturating 96% on 2 L nasal cannula, echo done the oxygen supplementation to 0 and his saturation maintained over 90% for 5 minutes. His blood work showed a white count of 7.1, hemoglobin of 11, platelet of 177, INR of 0.99, fibrinogen 626, d-dimer 0.67, sodium of 139, creatinine of 1.2, CRP of 120, proBNP of 837, chest x-ray showing bilateral patchy opacities concerning for pneumonia. He has been in hospital for treatment of COVID-19 pneumonia. He was admitted to the hospital and was started on antiviral treatment along with IV steroids and inhalation treatment. During hospitalization patient did not require any supplemental oxygenation and remained over 90% on room air. He has finished a course of 3 days of antiviral treatment and as he is not requiring any oxygen it has been stopped after 3 days. Patient has been at his baseline mentation because of advanced dementia. Patient's care and goals of care were discussed with his healthcare proxy/son Mr. Timur Martinez. He states patient has never wanted any kind of heroic measures and would not want any intubation or chest compression. His CODE STATUS has been changed to DNR/DNI. As patient has remained hemodynamically stable and maintaining his saturations over 90% on room air since admission he has been discharged back to long term after finishing his antibiotic course for 3 days. He supposed to take anticoagulation for next 2 weeks. During hospitalization he was found to have elevated blood pressures for which amlodipine has been added to his medications. He supposed to be on oral steroids for next 2 weeks which should be tapered off after that. He supposed to see his primary care provider within next 1 to 3 days. Physical Exam Narrative: EXAM NARRATIVE: General: Confused, no acute distress, AO x1, at baseline he is AO x1-2, fairly active as per the nurse HEENT: PERRLA, pupils bilaterally equal and reactive Chest: Bilateral bronchial breath sounds, occasional rhonchi, good air entry bilaterally, saturating 92% on room air CVS: S1-S2 regular, no murmurs, no tachycardia, no gallops, no rubs Abdomen: Soft, nontender, no organomegaly, bowel sounds present Neuro: No focal deficits, no facial deformity, AO x3, power 5/5 in all limbs Discharge Data Data Completed and Pending: Completed Studies During Hospitalization Category Date Time Status CT angio chest PE protcl [id number] Urge nt Cat Scan 08/27/20 13:[address] head wo con* 7 0450 Routine Cat Scan 08/28/20 15:34 Completed XR chest 1V mynor ble [id number] Q48H Exams 08/28/20 06:00 Completed XR chest 1V mynor ble [id number] Q48H Exams 08/30/20 06:00 Completed XR chest 1V mynor ble [id number] Routine Exams 08/29/20 08:03 Completed XR chest 1V mynor ble [id number] Stat Exams 08/27/20 11:07 Completed CV echo complete* [id number] Routine Ultrasound 08/27/20 15:50 Completed Pending at discharge Category Date Time Status XR chest 1V mynor ble [id number] Q48H Exams 09/01/20 06:00 Ordered Arterial Blood Ga s Full Stat Lab 08/27/20 15:54 Results Blood Culture Sta t Lab 08/27/20 16:46 Results Blood Culture Sta t Lab 08/29/20 19:15 Results D Dimer Routine Lab 08/30/20 08:13 Ordered Fibrinogen Routin e Lab 08/30/20 08:13 Ordered Sputum Culture an d Gram Stain Stat Lab 08/27/20 13:34 Uncollected Labs from last 24 hours 08/30/20 08/30/20 08/30/20 03:55 03:55 03:55 WBC RBC Hgb Hct MCV MCH MCHC RDW Plt Count MPV Neut % (Auto) Lymph % (Auto) [place] % (Auto) Eos % (Auto) Baso % (Auto) Neut # (Auto) Lymph # (Auto) [place] # (Auto) Eos # (Auto) Baso # (Auto) Nucleated RBC % (a uto) Nucleated RBCs # Fibrinogen Cancelled D-Dimer Cancelled Sodium 140 Potassium 4.2 Chloride 104 Carbon Dioxide 24 Anion Gap 16.2 BUN 21 Creatinine 0.8 GFR Calculation Not Reportable Glucose 114 Calculated Osmolal ity 294 Calcium 8.9 Ferritin 222 Total Bilirubin 0.4 AST 33 ALT 17 Alkaline Phosphata se 87 Lactate Dehydrogen ase 285 H C-Reactive Protein 28.7 H NT-Pro-B Natriuret Pep 564 H Total Protein 6.4 L Albumin 3.5 Globulin 2.9 Procalcitonin 08/30/20 08/29/20 03:55 03:45 WBC 11.1 H RBC 4.30 Hgb 11.7 Hct 37.2 L MCV 86.5 MCH 27.2 L MCHC 31.5 RDW 14.1 Plt Count 289 MPV 9.7 Neut % (Auto) 89.4 Lymph % (Auto) 5.3 [place] % (Auto) 4.8 Eos % (Auto) 0.0 Baso % (Auto) 0.1 Neut # (Auto) 9.89 H Lymph # (Auto) 0.6 L [place] # (Auto) 0.5 Eos # (Auto) 0.0 Baso # (Auto) 0.0 Nucleated RBC % (a uto) 0 Nucleated RBCs # 0.0 Fibrinogen D-Dimer Sodium Potassium Chloride Carbon Dioxide Anion Gap BUN Creatinine GFR Calculation Glucose Calculated Osmolal ity Calcium Ferritin Total Bilirubin AST ALT Alkaline Phosphata se Lactate Dehydrogen ase C-Reactive Protein NT-Pro-B Natriuret Pep Total Protein Albumin Globulin Procalcitonin 0.18 Vitals: Last Vital Signs Temp 97.8 F 08/30/20 08:00 Pulse 60 08/30/20 08:00 Resp 18 08/30/20 08:00 BP 148/82 08/30/20 08:00 Pulse Ox 93 08/30/20 08:00 Discharge Plan Discharge Patient Disposition: Xfer SNF Condition: Stable Prescriptions: New Vitamin C 500 mg Tablet 500 mg PO DAILY 14 Days Qty: 14 RF: 0 amlodipine 10 mg Tablet 10 mg PO DAILY Qty: 30 RF: 0 benzonatate 100 mg Capsule 100 mg PO TID PRN (Reason: cough) 10 Days Qty: 30 RF: 0 zinc gluconate 50 mg Tablet 50 mg PO DAILY Qty: 30 RF: 0 Eliquis 5 mg Tablet 5 mg PO BID 14 Days Qty: 28 RF: 0 dexamethasone 6 mg tablet 6 mg PO DAILY Qty: 14 RF: 0 Continued donepezil 10 mg tablet 10 mg PO DAILY RF: 0 finasteride 5 mg tablet 5 mg PO DAILY RF: 0 gabapentin 100 mg capsule 100 mg PO BEDTIME RF: 0 levothyroxine 25 mcg capsule 25 mcg PO DAILY RF: 0 lisinopril 20 mg tablet 20 mg PO DAILY RF: 0 loratadine 10 mg tablet 10 mg PO DAILY RF: 0 sertraline 25 mg tablet 75 mg PO DAILY RF: 0 tamsulosin 0.4 mg capsule 0.4 mg PO DAILY RF: 0 metoprolol tartrate 25 mg tablet 25 mg PO BID RF: 0 nitroglycerin [Nitrostat] 0.4 mg tablet, sublingual 0.4 mg SUBLINGUAL Q5M PRN (Reason: Chest Pain) RF: 0 clonidine HCl 0.1 mg Tablet 0.1 mg PO Q8H PRN (Reason: Hypertension) RF: 0 acetaminophen 325 mg Tablet 650 mg PO Q4H PRN (Reason: Pain) RF: 0 Miralax 17 gram Powder In Packet 17 g PO DAILY PRN (Reason: Constipation) RF: 0 Zofran 4 mg Tablet 4 mg PO Q4H PRN (Reason: Nausea) RF: 0 Travatan Z 0.004 % Drops 1 drp OPHTHALMIC (EYE) QPM RF: 0 hydrocodone-acetaminophen 10-325 mg Tablet 1 tab PO Q8H PRN (Reason: Pain) RF: 0 Milk of Magnesia 400 mg/5 mL Suspension 30 ml PO DAILY RF: 0 bisacodyl 10 mg Suppository 10 mg MS DAILY PRN (Reason: Constipation) RF: 0 Enema 19-7 gram/118 mL Enema 118 ml MS DAILY PRN (Reason: Constipation) RF: 0 bisacodyl 5 mg Tablet 5 mg PO DAILY PRN (Reason: Constipation) RF: 0 Ocuvite Eye Health 50 mg-15 unit- 4.5 mg-2.5 mg Tablet,Chewable 2 tab PO DAILY RF: 0 Discontinued enoxaparin [Lovenox] 40 mg/0.4 mL Syringe 40 mg SUBCUT DAILY RF: 0 Discharge Orders: Discharge Order (Routine); Ordered 08/30/20 Ordered By: Harrison Bangura Referrals: Teena Funes MD [Primary Care Provider] - 1-3 days Discharge Diet: Usual diet Discharge Activity: Resume usual activity Patient Instructions: Dexamethasone (By mouth), Apixaban (By mouth), Alzheimer Disease (DC), Ischemic Stroke (DC), Contact Precautions (DC) Activity Restrictions/Additional Instructions: Eliquis for blood thinner for next 2 weeks. Oral dexamethasone for next 2 weeks. Wean off steroids gradually after that. Please follow-up with your primary care provider within next 1 to 3 days. Please call for an appointment. After discussion of goals of care with DPSHARMIN and son Timur Martinez patient is allow natural now. Discharge Attestations Time Spent in Discharge Care*: greater than 30 min Specific Discharge Activities: Specific discharge activities: educating and/or supporting family/caregiver, discussing with keycase assembler/social workers/dc planners, documenting/other paperwork and evaluating patient/reviewing data Status at Discharge: Cognitive status at discharge: moderately impaired cognition , Behavioral status at discharge: cooperative , Functional status at discharge: uses cane/walker Overall status at discharge: patient is back to baseline Quality Metrics Clinical Quality Measures During this hospital stay, did patient experience: None Coding Level of Care Code Acute 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
[2020-08-30 12:00] VITALS: BP 172/88; PULSE 85; RESP 18; TEMP 36.6; O2SAT 94
[2020-08-30 13:57] VITALS: BP 172/88; PULSE 85; RESP 18; TEMP 36.6; O2SAT 94
== END 2020-08-30 14:00 | disposition skilled nursing facility (03) | DRG 177 ==
LOC: ER 10:53 → ICU 13:19
PROVIDERS: Emergency Medicine; Admitting Provider Student in an Organized Health Care Education/Training Program; Family Provider Family Medicine; PCP Family Medicine; Visit Provider Student in an Organized Health Care Education/Training Program
DX: U07.1 COVID-19 (principal); J12.89 Other viral pneumonia; J96.01 Acute respiratory failure with hypoxia; Z86.73 Personal history of transient ischemic attack (TIA), and cerebral infarction without residual deficits; N40.0 Benign prostatic hyperplasia without lower urinary tract symptoms; G30.1 Alzheimer's disease with late onset; F02.80 Dementia in other diseases classified elsewhere, unspecified severity, without behavioral disturbance, psychotic disturbance, mood disturbance, and anxiety; E78.5 Hyperlipidemia, unspecified; I25.10 Atherosclerotic heart disease of native coronary artery without angina pectoris; I65.23 Occlusion and stenosis of bilateral carotid arteries; N18.9 Chronic kidney disease, unspecified; K21.9 Gastro-esophageal reflux disease without esophagitis; Z66 Do not resuscitate; Z79.891 Long term (current) use of opiate analgesic
CPT/HCPCS: 12345; 36415; 36600; 70450; 71045; 71275; 80051; 80053; 81001; 82550; 82728; 82803; 82810; 83036; 83605; 83615; 83735; 83880; 83986; 84100; 84145; 84443; 85025; 85378; 85384; 85610; 86140; 86403; 87040; 87205; 87449; 87493; 87506; 87641; 93005; 93306; 96372; 96375; 99284; J0456; J1100; J1630; J2060; J7030; J7050; Q9967

== ENCOUNTER 2021-02-04 16:24 | Emergency (ER) | payer MEDICARE, MEDICAID, SELFPAY ==
[2021-02-04 16:27] VITALS: BP 199/89; PULSE 80; RESP 26; TEMP 36.8; O2SAT 100; BMI 22.4
--- NOTE | 2021-02-04 16:27 | XR_ITS ---
WS: [id number] Portable AP upright chest, 02/04/2021 Clinical Data: cp Comparison: Portable chest, 08/30/2020. Findings: Minimal patchy interstitial markings are still seen. No nodules, masses or effusions are se en. The heart is normal. The pulmonary vascularity is not increased. No pneumonia or pneumothorax is seen. The aortic arch and descending aorta show calcification and mild tortuosity. Monitor leads are on the chest wall. XR/XR chest 1V portable [id number] Impression: 1. Mild bilateral interstitial markings which may be from chronic fibrosis. 2. Atherosclerosis.
--- NOTE | 2021-02-04 16:27 | ECG_ITS ---
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 Measurements Intervals [place] Rate: 82 P: 73 HI: 196 QRS: 40 QRSD: 98 T: 73 QT: 371 QTc: 435 Interpretive Statements SINUS RHYTHM NONSPECIFIC T-WAVE ABNORMALITY Compared to ECG 08/27/2020 11:01:07 T-wave abnormality now present Electronically Signed On 02-04-2021 17:11:52 RELATIONSHIP BANKER by Iván Shelley M.D. [id number] f
--- NOTE | 2021-02-04 16:47 | ED_ITS ---
HPI - Chest Pain General: Chief Complaint: Chest Pain Stated Complaint: CHEST PAIN/ HYPERTENSION Time Seen by Provider: 02/04/21 16:28 Source: old records reviewed Mode of arrival: EMS Limitations: altered mental status History of Present Illness: HPI narrative: 85-year-old male with history of severe dementia brought by EMS from senior living after concerned about his elevated blood pressures. They also state that he indicated he was having chest pain, and that his O2 sats at 1 time were in the 80s on room air. The patient himself is unable to provide any meaningful HPI due to severe dementia and severe hearing loss. Associated symptoms: Reports abdominal pain Review of Systems General: Reports: ROS unobtainable due to medical condition GI: Reports: abdominal pain and bloating PFSH ED PFSH: Medical History Alzheimer disease ASHD (arteriosclerotic heart disease) BPH (benign prostatic hyperplasia) Carotid stenosis, bilateral CKD (chronic kidney disease) CVA (cerebral vascular accident) GERD (gastroesophageal reflux disease) Hyperlipidemia Surgical History S/P carotid endarterectomy S/P hernia repair Family History Father , AGE 62 CAD (coronary artery disease) Myocardial infarction Physical Exam Const: COMMON NORMALS: no acute distress and average body habitus GENERAL APPEARANCE: cooperative, comfortable and well hydrated; not in distress, not anxious, not disheveled, not lethargic, not ill appearing and not frail appearing ORIENTATION/CONSCIOUSNESS: not lethargic HENMT: COMMON NORMALS: normocephalic and hearing grossly normal bilaterally HEAD & SCALP: normocephalic FACE & SINUS: normal facial exam and face symmetric Eye: COMMON NORMALS: Equal, round and reactive pupils present, EOMs intact bilaterally, conjunctivae normal and no scleral icterus ALIGNMENT: Yes alignment normal CONJUNCTIVA: Yes conjunctivae normal PUPIL: Yes Equal, round and reactive pupils present Neck/C-Spine: COMMON NORMALS: full ROM and no lymphadenopathy Chest: COMMONS NORMALS: normal inspection of the chest and normal palpation of entire chest wall CHEST: No localized rib tenderness with anteroposterior compression Resp: COMMON NORMALS: normal respiratory effort, No use of accessory muscles and clear to auscultation bilaterally AUSCULTATION: clear to auscultation bilaterally Cardio: COMMON NORMALS: S1 normal heart sound present and S2 normal heart sound present HEART SOUNDS: S1 normal heart sound present and S2 normal heart sound present GI: COMMON NORMALS: Soft to palpation and No hepatosplenomegaly present INSPECTION: No Anasarca, Yes abdominal distension and No Localized GI swelling present AUSCULTATION: Yes normoactive bowel sounds PALPATION: Yes Soft to palpation, Yes Tenderness to palpation present (GI) (Mild, lower abdomen), No Guarding due to palpation present (GI), No Rigid due to palpation and Yes No hepatosplenomegaly present Extremity: COMMON NORMALS: normal to inspection, full ROM and capillary refill normal Neuro: SENSORIUM/ORIENTATION: No lethargic and Yes other (Baseline mental status.) GAIT: Yes Normal gait present, No Antalgic gait present and No Ataxic gait present MOTOR EXAM: 5/5 motor strength present throughout, Pronator motor function not present and no tremor noted Skin: COMMON NORMALS: no rashes or lesions noted GENERAL SKIN EXAM: no rashes or lesions noted Course Vital Signs: Vital signs: Vital Signs Temperature 98.3 F 02/04/21 16:27 Pulse Rate 83 02/04/21 20:13 Respiratory Rate 16 02/04/21 20:13 Blood Pressure 151/74 02/04/21 20:13 Pulse Oximetry 92 02/04/21 20:13 MDM - Chest Pain MDM Narrative: Medical decision making narrative: 85-year-old male with history of dementia and hearing loss brought by EMS because of senior living staff concern that he was having a heart attack. The patient does not indicate any chest pain or difficulty breathing. He does complain of a distended abdomen, but is not especially tender on exam. Bladder scan does not show significant residual volume. UA does not indicate acute infection. The patient ambulated to the bathroom himself and had a large BM, afterwards he said his abdomen was back to normal and he was feeling ready to go home. No ischemic changes on serial EKGs, serial troponins also wnl He will be released back to senior living in stable condition. EKG; normal sinus rhythm at the rate of 82, OR 193, QRS 91, QTc 406, normal axis, no ST segment elevation or depression. 02/04/2021, 1840 Medical Records: Attestation: I reviewed the patient's medical records. Lab Data: Attestation: I reviewed the patient's lab results. Labs: Lab Results 02/04/21 02/04/21 02/04/21 Range/Units 16:30 16:30 16:30 WBC 5.2 (4.0-10.0) 10^3/ uL RBC 4.77 (4.1-5.3) 10^6/u L Hgb 12.7 (11.7-16.6) g/dL Hct 42.9 (42.0-52.0) % MCV 89.9 (80-94) fL MCH 26.6 L (28.0-34.0) pg MCHC 29.6 L (30.0-36.0) g/dL RDW 14.2 (12.1-15.1) % Plt Count 174 (130-400) 10^3/c mm MPV 9.4 (7.4-10.4) fL Neut % (Auto) 91.6 % Lymph % (Auto) 4.8 % Zavala % (Auto) 1.5 % Eos % (Auto) 1.5 % Baso % (Auto) 0.2 % Neut # (Auto) 4.77 (1.8-7.7) 10^3/u L Lymph # (Auto) 0.3 L (0.8-4.8) 10^3/u L Zavala # (Auto) 0.1 L (0.2-0.9) 10^3/u L Eos # (Auto) 0.1 (0.0-0.8) 10^3/u L Baso # (Auto) 0.0 (0.0-0.1) 10^3/u L Nucleated RBC % (a uto) 0 % Nucleated RBCs # 0.0 /100WBC Sodium 145 (136-145) mmol/L Potassium 4.1 (3.5-5.1) mmol/L Chloride 107 (98-107) mmol/L Carbon Dioxide 30 H (22-29) mmol/L Anion Gap 12.1 (5-19) BUN 18 (8-23) mg/dL Creatinine 1.2 (0.7-1.2) mg/dL GFR Calculation Not Reportable Glucose 86 (65-115) mg/dL POC Glucose (70-110) mg/dL Calculated Osmolal ity 301 H (285-295) mOsm/k g Calcium 8.7 (8.5-10.5) mg/dL Magnesium 1.9 (1.7-2.3) mg/dL Total Bilirubin 0.5 (0.15-1.2) mg/dL AST 16 (0-40) U/L ALT 9 (0-41) U/L Alkaline Phosphata se 93 (40-130) IU/L Troponin T Baselin e 15 (0-15) ng/L Troponin T 120 Min [place] (0-15) ng/L Delta Troponin T (0-10) ABS# NT-Pro-B Natriuret Pep 320 (0-450) pg/mL Total Protein 7.0 (6.6-8.7) g/dL Albumin 4.7 (3.5-5.2) g/dL Globulin 2.3 (1.3-4.6) g/dL Urine Color (Yellow) Urine Appearance (CLEAR) Urine pH (5-7) Ur Specific Gravit y (1.005-1.030) Urine Protein (Negative) Urine Glucose (UA) (Normal) Urine Ketones (Negative) Urine Blood (Negative) Urine Nitrate (Negative) Urine Bilirubin (Negative) Urine Urobilinogen (Negative) mg/dL Ur Leukocyte Bella ase (Negative) Urine RBC (0-2) /hpf Urine WBC (0-5) /hpf Ur Squamous Epith Cells (0-5) /hpf Amorphous Sediment Urine Bacteria (NONE) /hpf Hyaline Casts /lpf Urine Mucus /hpf 02/04/21 02/04/21 02/04/21 Range/Units 16:53 17:40 19:00 WBC (4.0-10.0) 10^3/ uL RBC (4.1-5.3) 10^6/u L Hgb (11.7-16.6) g/dL Hct (42.0-52.0) % MCV (80-94) fL MCH (28.0-34.0) pg MCHC (30.0-36.0) g/dL RDW (12.1-15.1) % Plt Count (130-400) 10^3/c mm MPV (7.4-10.4) fL Neut % (Auto) % Lymph % (Auto) % Zavala % (Auto) % Eos % (Auto) % Baso % (Auto) % Neut # (Auto) (1.8-7.7) 10^3/u L Lymph # (Auto) (0.8-4.8) 10^3/u L Z[place]ala # (Auto) (0.2-0.9) 10^3/u L Eos # (Auto) (0.0-0.8) 10^3/u L Baso # (Auto) (0.0-0.1) 10^3/u L Nucleated RBC % (a uto) % Nucleated RBCs # /100WBC Sodium (136-145) mmol/L Potassium (3.5-5.1) mmol/L Chloride (98-107) mmol/L Carbon Dioxide (22-29) mmol/L Anion Gap (5-19) BUN (8-23) mg/dL Creatinine (0.7-1.2) mg/dL GFR Calculation Glucose (65-115) mg/dL POC Glucose 87 (70-110) mg/dL Calculated Osmolal ity (285-295) mOsm/k g Calcium (8.5-10.5) mg/dL Magnesium (1.7-2.3) mg/dL Total Bilirubin (0.15-1.2) mg/dL AST (0-40) U/L ALT (0-41) U/L Alkaline Phosphata se (40-130) IU/L Troponin T Baselin e (0-15) ng/L Troponin T 120 Min [place] 13.94 (0-15) ng/L Delta Troponin T -1.06 L (0-10) ABS# NT-Pro-B Natriuret Pep (0-450) pg/mL Total Protein (6.6-8.7) g/dL Albumin (3.5-5.2) g/dL Globulin (1.3-4.6) g/dL Urine Color Yellow (Yellow) Urine Appearance Hazy A (CLEAR) Urine pH 5 (5-7) Ur Specific Gravit y 1.020 (1.005-1.030) Urine Protein Neg (Negative) Urine Glucose (UA) Norm (Normal) Urine Ketones Negative (Negative) Urine Blood Neg (Negative) Urine Nitrate Negative (Negative) Urine Bilirubin Neg (Negative) Urine Urobilinogen Norm (Negative) mg/dL Ur Leukocyte Bella ase Negative (Negative) Urine RBC 0-4 H (0-2) /hpf Urine WBC None (0-5) /hpf Ur Squamous Epith Cells 0-4 H (0-5) /hpf Amorphous Sediment Not Reportable Urine Bacteria Y (NONE) /hpf Hyaline Casts 0-4 H /lpf Urine Mucus 1+ /hpf Discharge Plan Discharge Patient Disposition: Home Clinical Impression: Elevated blood pressure reading, Normal exam Condition: Stable Prescriptions: No Action donepezil 10 mg tablet 10 mg PO DAILY@07 RF: 0 finasteride 5 mg tablet 5 mg PO DAILY@ RF: 0 gabapentin 100 mg capsule 100 mg PO DAILY@ RF: 0 levothyroxine 25 mcg capsule 25 mcg PO DAILY@ RF: 0 sertraline 25 mg tablet 75 mg PO DAILY@ RF: 0 tamsulosin 0.4 mg capsule 0.4 mg PO DAILY@ RF: 0 metoprolol tartrate 25 mg tablet 25 mg PO BID RF: 0 nitroglycerin [Nitrostat] 0.4 mg tablet, sublingual 0.4 mg SUBLINGUAL Q5M PRN (Reason: Chest Pain) RF: 0 clonidine HCl 0.1 mg Tablet 0.1 mg PO Q8H PRN (Reason: Hypertension) RF: 0 acetaminophen 325 mg Tablet 650 mg PO Q4H PRN (Reason: Pain) RF: 0 ondansetron HCl [Zofran] 4 mg Tablet 4 mg PO Q4H PRN (Reason: Nausea) RF: 0 hydrocodone-acetaminophen 10-325 mg Tablet 1 tab PO Q8H PRN (Reason: Pain) RF: 0 magnesium hydroxide [Milk of Magnesia] 400 mg/5 mL Suspension 30 ml PO DAILY PRN (Reason: Constipation) RF: 0 bisacodyl 10 mg Suppository 10 mg OR DAILY PRN (Reason: Constipation) RF: 0 Enema 19-7 gram/118 mL Enema 118 ml OR DAILY PRN (Reason: Constipation) RF: 0 bisacodyl 5 mg Tablet 10 mg PO DAILY PRN (Reason: Constipation) RF: 0 loratadine 10 mg Tablet 10 mg PO DAILY@07 RF: 0 Ocuvite Adult 50 Plus 250-5-1 mg Capsule 1 cap PO DAILY@07 RF: 0 Xanax 0.25 mg Tablet 0.25 mg PO TID@05,,17 RF: 0 Lumigan 0.01 % Drops 1 drp OPHTHALMIC (EYE) DAILY@19 RF: 0 Discharge Orders: Discharge ED (Routine); Ordered 02/04/21 Ordered By: Nidia Duckworth Referrals: Teena Funes MD [Primary Care Provider] - Discharge Diet: Advance as tolerated Discharge Activity: Increase activity as tolerated Activity Restrictions/Additional Instructions: Follow-up with your PCP in the next 3 to 5 days. Continue all medication as scheduled. Return immediately to the ER if you develop fever, abdominal pain, vomiting, or any other worsening symptoms. Coding Level of Care Code ED Abnormal Psychology Teacher for Chg Fwd Exam Comprehensive
[2021-02-04 16:50] LABS: Basophils % 0.2 %; Eosinophils # 0.1 10^3/uL (0.0-0.8); Eosinophils % 1.5 %; Hematocrit 42.9 % (42.0-52.0); Hemoglobin 12.7 g/dL (11.7-16.6); Lymphocytes # 0.3 10^3/uL (0.8-4.8); Lymphocytes % 4.8 %; Mean Corpuscular HGB Conc 29.6 g/dL (30.0-36.0); Mean Corpuscular Hemoglobin 26.6 pg (28.0-34.0); Mean Corpuscular Volume 89.9 fL (80-94); Mean Platelet Volume 9.4 fL (7.4-10.4); Monocytes # 0.1 10^3/uL (0.2-0.9); Monocytes % 1.5 %; Neutrophils # 4.77 10^3/uL (1.8-7.7); Neutrophils % 91.6 %; Nucleated Red Blood Cells % 0 %; Platelet Count 174 10^3/cmm (130-400); Red Blood Count 4.77 10^6/uL (4.1-5.3); Red Cell Distribution Width 14.2 % (12.1-15.1); White Blood Count 5.2 10^3/uL (4.0-10.0)
[2021-02-04 16:57] LABS: Glucose Point of Care 87 mg/dL (70-110)
[2021-02-04 17:00] VITALS: BP 154/67; PULSE 84; RESP 20; O2SAT 98
[2021-02-04 17:08] LABS: Alanine Aminotransferase 9 U/L (0-41); Albumin Level 4.7 g/dL (3.5-5.2); Alkaline Phosphatase 93 IU/L (40-130); Anion Gap 12.1 (5-19); Aspartate Amino Transferase 16 U/L (0-40); Blood Urea Nitrogen 18 mg/dL (8-23); Calcium 8.7 mg/dL (8.5-10.5); Carbon Dioxide 30 mmol/L (22-29); Chloride 107 mmol/L (98-107); Globulin 2.3 g/dL (1.3-4.6); Glucose 86 mg/dL (65-115); Magnesium 1.9 mg/dL (1.7-2.3); NT Pro B Type Natriuretic Pept 320 pg/mL (0-450); Osmolality Calculated 301 mOsm/kg (285-295); Potassium 4.1 mmol/L (3.5-5.1); Sodium 145 mmol/L (136-145); Total Bilirubin 0.5 mg/dL (0.15-1.2)
[2021-02-04 17:09] LABS: Troponin(5th) Baseline 15 ng/L (0-15)
[2021-02-04 18:04] VITALS: BP 194/131; PULSE 88; RESP 20
[2021-02-04 18:20] LABS: Add Urine Microscopic? YES; Bilirubin Urine Neg (Negative); Blood Urine Neg (Negative); Glucose Urine UA Norm (Normal); Ketones Urine Negative (Negative); Leukocyte Esterase Urine Negative (Negative); Nitrate Urine Negative (Negative); Protein Urine Neg (Negative); Urine Appearance Hazy (CLEAR); Urine Color Yellow (Yellow); Urobilinogen Urine Norm (Negative); pH Urine 5 (5-7)
--- NOTE | 2021-02-04 18:27 | ECG_ITS ---
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
[2021-02-04 18:37] LABS: Add Urine Culture? No; Bacteria Urine Y /hpf; Hyaline Casts Urine 0-4 /lpf; Mucus Urine 1+ /hpf; RBC Urine 0-4 /hpf (0-2); Squamous Epithelial Cell Urine 0-4 /hpf (0-5)
--- NOTE | 2021-02-04 18:48 | PC.NURSE ---
EKG done at 1838 and shown to ER doctor
--- NOTE | 2021-02-04 19:10 | PC.NURSE ---
This nurse taking over patient care at this time. Pt resting quietly in bed with son at bedside. Pt denies any needs at this time.
[2021-02-04 19:18] VITALS: BP 139/61; PULSE 81; RESP 24
[2021-02-04 19:28] LABS: Troponin 5 2HR 13.94 ng/L (0-15)
[2021-02-04 19:29] LABS: Troponin 5 2HR Delta -1.06 ABS# (0-10)
[2021-02-04 20:13] VITALS: BP 151/74; PULSE 83; RESP 16; O2SAT 92
== END 2021-02-04 20:15 | disposition home or self-care (01) ==
PROVIDERS: Family Medicine; Emergency Provider Family Medicine; PCP Family Medicine
DX: R03.0 Elevated blood-pressure reading, without diagnosis of hypertension (principal); G30.9 Alzheimer's disease, unspecified; F02.80 Dementia in other diseases classified elsewhere, unspecified severity, without behavioral disturbance, psychotic disturbance, mood disturbance, and anxiety; Z86.73 Personal history of transient ischemic attack (TIA), and cerebral infarction without residual deficits; E78.5 Hyperlipidemia, unspecified
CPT/HCPCS: 36415; 36416; 51798; 71045; 80053; 81001; 82962; 83735; 83880; 84484; 85025; 93005; 99284

== ENCOUNTER 2022-05-22 02:14 | Emergency (ER) | payer MEDICARE, MEDICAID, SELFPAY ==
[2022-05-22 02:21] VITALS: BP 146/82; PULSE 88; RESP 30; O2SAT 93; BMI 24.4
--- NOTE | 2022-05-22 02:46 | ECG_ITS ---
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 Measurements Intervals [place] Rate: 89 P: 78 FL: 177 QRS: 54 QRSD: 95 T: 72 QT: 396 QTc: 484 Interpretive Statements SINUS RHYTHM WITH SINUS ARRHYTHMIA Compared to ECG 02/04/2021 18:37:29 T-wave abnormality no longer present Electronically Signed On 05-22-2022 12:28:19 CDT by Iván Shelley M.D. [id number]
--- NOTE | 2022-05-22 02:46 | XRR_ITS ---
PROCEDURE INFORMATION: Exam: XR Chest Exam date and time: 05/22/2022 2:50 AM Age: 86 years old Clinical indication: Patient HX: Severe lethargy with fever. Patient non verbal. ; Additional info: AMS fever TECHNIQUE: Imaging protocol: Radiologic exam of the chest. Views: 1 view. COMPARISON: CR XR chest 1V portable [id number] 02/04/2021 4:47 PM FINDINGS: Lungs: Unremarkable. No consolidation. Pleural spaces: Unremarkable. No pleural effusion. No pneumothorax. Heart/Mediastinum: Unremarkable. No cardiomegaly. Bones/joints: Unremarkable. XR/XR chest 1V portable [id number] IMPRESSION: No acute findings.
--- NOTE | 2022-05-22 02:46 | CTR_ITS ---
PROCEDURE INFORMATION: Exam: CT Head Without Contrast Exam date and time: 05/22/2022 3:04 AM Age: 86 years old Clinical indication: Altered mental status/memory loss and fever; Patient HX: Severe lethargy with fever. Patient non verbal. ; Additional info: AMS TECHNIQUE: Imaging protocol: Computed tomography of the head without contrast. Radiation optimization: All CT scans at this facility use at least one of these dose optimization techniques: automated exposure control; mA and/or kV adjustment per patient size (includes targeted exams where dose is matched to clinical indication); or iterative reconstruction. COMPARISON: CT head wo con* [id number] 08/28/2020 3:33 PM RADIATION DOSE METRICS: Total DLP (mGy-cm): 836.57 FINDINGS: Brain: Stable hypoattenuation and encephalomalacia is seen within the right posterior parietal lobe. Diffuse hypoattenuation seen within the deep white matter of the frontal lobes bilaterally in a pattern suggesting diffuse vasogenic edema. There is effacement of the sulci within the frontal lobes bilaterally. Some mass effect is seen in the right frontal lobe, suspicious for an underlying mass. There are areas of hypoattenuation seen in the frontal cortices possibly representing combined frontal lobe infarctions as well. Cerebral ventricles: Ventriculomegaly of the lateral and 3rd ventricles is again seen similar to that present on 08/28/2020. However, there is some mass effect exerted on the anterior horns of the lateral ventricles, right more prominent than left. Paranasal sinuses: Mild mucosal thickening and fluid is seen within the ethmoidal sinuses bilaterally. New there is moderate diffuse cerebral atrophy. Patchy areas of hypoattenuation are seen in the deep white matter of the cerebral hemispheres bilaterally compatible with deep white matter microvascular disease. Mastoid air cells: Visualized mastoid air cells are well aerated. Bones/joints: Unremarkable. No acute fracture. Soft tissues: Unremarkable. CT/CT head wo con* [id number] IMPRESSION: 1. Diffuse prominent vasogenic edema the frontal lobes bilaterally with effacement of the frontal lobe sulci. There is mass effect seen within the right frontal lobe suspicious for an underlying mass. Other possibilities include bilateral frontal lobe abscesses, infectious etiologies or venous thrombosis. 2. Hypoattenuation extends into the frontal lobe cortices anteriorly suspicious for combined frontal lobe infarctions as well. 3. The tracheal megaly of the lateral and 3rd ventricles similar to that present on 08/28/2020 although there is some mass effect exerted on the anterior horns of the lateral ventricles, right more prominent than left. 4. Follow-up pre and post-contrast MRI imaging including diffusion-weighted imaging is suggested.
[2022-05-22 02:53] LABS: Basophils % 0.2 %; Eosinophils % 0.2 %; Hematocrit 42.6 % (42.0-52.0); Hemoglobin 13.6 g/dL (11.7-16.6); Lymphocytes # 1.2 10^3/uL (0.8-4.8); Lymphocytes % 11.3 %; Mean Corpuscular HGB Conc 31.9 g/dL (30.0-36.0); Mean Corpuscular Hemoglobin 27.4 pg (28.0-34.0); Mean Corpuscular Volume 85.9 fl (80-94); Mean Platelet Volume 10.4 fL (7.4-10.4); Monocytes # 0.7 10^3/uL (0.2-0.9); Monocytes % 6.9 %; Neutrophils # 8.35 10^3/uL (1.8-7.7); Neutrophils % 80.8 %; Nucleated Red Blood Cells % 0 %; Platelet Count 328 10^3/cmm (130-400); Red Blood Count 4.96 10^6/uL (4.1-5.3); Red Cell Distribution Width 14.5 % (12.1-15.1); White Blood Count 10.3 10^3/uL (4.0-10.0)
[2022-05-22 03:04] LABS: Alanine Aminotransferase 8 U/L (0-41); Albumin Level 3.7 g/dL (3.5-5.2); Alkaline Phosphatase 77 IU/L (40-130); Aspartate Amino Transferase 13 U/L (0-40); Blood Urea Nitrogen 24 mg/dL (8-23); C Reactive Protein 25.6 mg/L (0.0-4.9); Calcium 9.4 mg/dL (8.5-10.5); Carbon Dioxide 26 mmol/L (22-29); Chloride 108 mmol/L (98-107); Creatinine Clr Calc Pharmacy 49.5118; Globulin 3.1 g/dL (1.3-4.6); Glucose 127 mg/dL (65-115); Osmolality Calculated 310 mOsm/kg (285-295); Sodium 147 mmol/L (136-145); Total Bilirubin 0.4 mg/dL (0.15-1.2); Total Protein 6.8 g/dL (6.6-8.7)
[2022-05-22 03:06] VITALS: BP 157/97; PULSE 86; TEMP 36; O2SAT 96
[2022-05-22 03:15] LABS: ABG PCO2 41.9 mmHg (35-45); ABG PH Result 7.44 (7.35-7.45); Arterial Blood Gas Hematocrit 42.3 % (42-52); Base Excess ABG 3.8 mmol/L (-2.0-2.0); Blood Gas Allen Test Pos; Blood Gas LPM 2.5 %; Blood Gas Operator Identificat WALCI; Blood Gas Sample Site Radial, right; Blood Gas Sample Type Arterial; HCO3 ABG 28.4 mmol/L (22-26); Oxygen Device NC
[2022-05-22] MEDS: sodium chloride 0.9% 1,000 ML 999 ML IV (04:42)
[2022-05-22 04:47] LABS: Add Urine Microscopic? NO; Charge for UA Resulting for Rev
[2022-05-22 04:53] LABS: Bilirubin Urine 1+ (Negative); Blood Urine Neg (Negative); Glucose Urine UA Norm (Normal); Ketones Urine Negative (Negative); Leukocyte Esterase Urine Negative (Negative); Nitrate Urine Negative (Negative); Protein Urine Neg (Negative); Specific Gravity, Urine 1.025 (1.005-1.030); Urine Appearance Clear (CLEAR); Urine Color Yellow (Yellow); Urobilinogen Urine 1 mg/dL (Negative); pH Urine 5 (5-7)
[2022-05-22 05:19] LABS: Adenovirus Not Detected (NOT DETECT); Chlamydia Pneumoniae Not Detected (NOT DETECT); Coronavirus 229E,HKU1,NL63,OC4 Not Detected (NOT DETECT); Human Metapneumovirus Not Detected (NOT DETECT); Human Rhinovirus/Enterovirus Not Detected (NOT DETECT); Influenza A Not Detected (NOT DETECT); Influenza A H1 Not Detected (NOT DETECT); Influenza A H1-2009 Not Detected (NOT DETECT); Influenza A H3 Not Detected (NOT DETECT); Influenza B Not Detected (NOT DETECT); Mycoplasma Pneumoniae Not Detected (NOT DETECT); Parainfluenza Virus Type 1 Not Detected (NOT DETECT); Parainfluenza Virus Type 2 Not Detected (NOT DETECT); Parainfluenza Virus Type 3 Not Detected (NOT DETECT); Parainfluenza Virus Type 4 Not Detected (NOT DETECT); Respiratory Syncytial Virus A Not Detected (NOT DETECT); Respiratory Syncytial Virus B Not Detected (NOT DETECT); SARS-COV-2 Not Detected (NOT DETECT)
--- NOTE | 2022-05-22 07:01 | ED_ITS ---
HPI - Altered Mental Status General: Chief Complaint: Altered Mental Status Stated Complaint: AMS Time Seen by Provider: 05/22/22 02:29 Source: EMS, RN notes reviewed and other ([facility] staff) History of Present Illness: 86-year-old gentleman who resides in a senior care. He was sent to us for decreased responsiveness over the past few hours. His senior care nurse notes a decline in the last month or so. He lost continence of urine around a month ago, feces of sometime ago, and has not been able to move or get out of bed for a few days. He was hard to arouse when the nurse checked on him this morning, and so ambulance was called. No definite history of fever, vomiting, etc., although the patient is not responding to verbal communication at this point. MD complaint: altered mental status and decreased responsiveness Onset (ago): hour(s) Timing confirmed by: caregiver Severity: severe Consistency of symptoms: Getting Worse Context: unknown Associated symptoms: Reports other Review of Systems General: Reports: ROS unobtainable due to medical condition Const: Denies: fever(s) GI: Denies: vomiting Neuro: Reports: weakness in extremities and behavioral changes PFS ED PFSH: Medical History Alzheimer disease ASHD (arteriosclerotic heart disease) BPH (benign prostatic hyperplasia) Carotid stenosis, bilateral CKD (chronic kidney disease) CVA (cerebral vascular accident) GERD (gastroesophageal reflux disease) Hyperlipidemia Surgical History S/P carotid endarterectomy S/P hernia repair Family History Father , AGE 62 CAD (coronary artery disease) Myocardial infarction Physical Exam Const: GENERAL APPEARANCE: well kempt, lethargic, ill appearing and frail appearing ORIENTATION/CONSCIOUSNESS: Yes lethargic HENMT: COMMON NORMALS: normocephalic, atraumatic and Normal external nose present HEAD & SCALP: normocephalic and atraumatic FACE & SINUS: face not symmetric, no ecchymosis and no erythema NOSE: Normal external nose present Eye: ALIGNMENT: Yes other (disconjugate) SCLERA: sclerae normal PUPIL: Yes Pupils anisocoria and Yes Other pupil findings (minimally reactive) EOM: No Nystagmus present Neck/C-Spine: GENERAL: Yes trachea midline and No anterior neck swelling Chest: CHEST: Yes Symmetrical chest wall rise Resp: COMMON NORMALS: normal respiratory effort, No use of accessory muscles and clear to auscultation bilaterally AUSCULTATION: clear to auscultation bilaterally Cardio: COMMON NORMALS: regular rate and regular rhythm RATE: regular rate RHYTHM: regular rhythm GI: COMMON NORMALS: Soft to palpation INSPECTION: Yes normal to inspection AUSCULTATION: Yes normoactive bowel sounds PALPATION: Yes Soft to palpation Extremity: COMMON NORMALS: no pedal edema Neuro: NICOLAS COMA SCALE: document GCS findings Nicolas coma scale eye opening: To pressure Nicolas coma scale verbal response: None Nicolas coma scale motor response: Localising [place] coma scale total score: 8 SENSORIUM/ORIENTATION: Yes lethargic CRANIAL NERVES: Yes CN VII (facial) Laterality: right CN VII findings: facial droop SPEECH: Total aphasia GAIT: Yes Unable to assess gait SENSORY EXAM: Yes extremities (seem intact to mildly noxious stimuli) OTHER: Neuro exam is non-participatory otherwise. Psych: APPEARANCE: Yes well kempt Course Vital Signs: Vital signs: Vital Signs Temperature 96.8 F L 05/22/22 03:06 Pulse Rate 95 05/22/22 13:33 Respiratory Rate 16 05/22/22 13:33 Blood Pressure 186/108 05/22/22 13:33 Pulse Oximetry 94 05/22/22 13:33 MDM - Altered Mental Status Medical Decision Making 86-year-old gentleman who is essentially obtunded. His GCS is 8. He is mildly hypertensive. He is nontachycardic. He is afebrile. His white blood cell count is 10. Hemoglobin 13. Sodium is slightly elevated at 147. BUN is 24. Head CT shows diffuse vasogenic edema in the frontal lobes bilaterally with effacement of the sulci. This is suspicious for underlying mass versus venous thrombosis. Infectious causes are less likely. Given his prior condition, and condition now with these findings, aggressive intervention is not likely to yield good results. I spoke with the patient's son over the phone. Findings were relayed to him practically. Family was given the option of admission with continued imaging with MRI, with possibility of aggressive intervention versus comfort care measures. The patient's son and DPOA note that the patient would want conservative comfort care measures instead. We spoke with the senior care, and they would like the patient back so that they can take care of him and keep him comfortable. He will go back later today. Lab Data : 05/22/22 02:07 05/22/22 02:07 Radiology Impressions Chest X-Ray 05/22/22 02:46 IMPRESSION: No acute findings. Head CT 05/22/22 02:46 IMPRESSION: 1. Diffuse prominent vasogenic edema the frontal lobes bilaterally with effacement of the frontal lobe sulci. There is mass effect seen within the right frontal lobe suspicious for an underlying mass. Other possibilities include bilateral frontal lobe abscesses, infectious etiologies or venous thrombosis. 2. Hypoattenuation extends into the frontal lobe cortices anteriorly suspicious for combined frontal lobe infarctions as well. 3. The tracheal megaly of the lateral and 3rd ventricles similar to that present on 08/28/2020 although there is some mass effect exerted on the anterior horns of the lateral ventricles, right more prominent than left. 4. Follow-up pre and post-contrast MRI imaging including diffusion-weighted imaging is suggested. ADDENDUM: 05/22/22 0516 CRITICAL RESULT: THIS REPORT CONTAINS FINDINGS THAT MAY BE CRITICAL TO PATIENT CARE. The findings were verbally communicated via telephone conference with DANIEL Remy at 5:14 AM CDT on 05/22/2022. The findings were acknowledged and understood. Laboratory Results WBC 10.3 10^3/uL (4.0-10.0) H 05/22/22 02:07 RBC 4.96 10^6/uL (4.1-5.3) 05/22/22 02:07 Hgb 13.6 g/dL (11.7-16.6) 05/22/22 02:07 Hct 42.6 % (42.0-52.0) 05/22/22 02:07 MCV 85.9 fl (80-94) 05/22/22 02:07 MCH 27.4 pg (28.0-34.0) L 05/22/22 02:07 MCHC 31.9 g/dL (30.0-36.0) 05/22/22 02:07 RDW 14.5 % (12.1-15.1) 05/22/22 02:07 Plt Count 328 10^3/cmm (130-400) 05/22/22 02:07 MPV 10.4 fL (7.4-10.4) 05/22/22 02:07 Neut % (Auto) 80.8 % 05/22/22 02:07 Lymph % (Auto) 11.3 % 05/22/22 02:07 [place] % (Auto) 6.9 % 05/22/22 02:07 Eos % (Auto) 0.2 % 05/22/22 02:07 Baso % (Auto) 0.2 % 05/22/22 02:07 Neut # (Auto) 8.35 10^3/uL (1.8-7.7) H 05/22/22 02:07 Lymph # (Auto) 1.2 10^3/uL (0.8-4.8) 05/22/22 02:07 [place] # (Auto) 0.7 10^3/uL (0.2-0.9) 05/22/22 02:07 Eos # (Auto) 0.0 10^3/uL (0.0-0.8) 05/22/22 02:07 Baso # (Auto) 0.0 10^3/uL (0.0-0.1) 05/22/22 02:07 Nucleated RBC % (auto) 0 % 05/22/22 02:07 Nucleated RBCs # 0.0 /100WBC 05/22/22 02:07 Specimen Type Arterial 05/22/22 03:03 Sample Site Radial, right 05/22/22 03:03 ABG pH 7.44 (7.35-7.45) 05/22/22 03:03 ABG pCO2 41.9 mmHg (35-45) 05/22/22 03:03 ABG pO2 84.0 mmHg (80.0-100.0) 05/22/22 03:03 ABG HCO3 28.4 mmol/L (22-26) H 05/22/22 03:03 ABG Base Excess 3.8 mmol/L (-2.0-2.0) H 05/22/22 03:03 Yoseph Test Pos 05/22/22 03:03 Hematocrit 42.3 % (42-52) 05/22/22 03:03 O2 Delivery Device Nc 05/22/22 03:03 O2 Liters/Min 2.5 % 05/22/22 03:03 Journeyman Pipe [employer] ID Khushboo 05/22/22 03:03 Sodium 147 mmol/L (136-145) H 05/22/22 02:07 Potassium 4.0 mmol/L (3.5-5.1) 05/22/22 02:07 Chloride 108 mmol/L (98-107) H 05/22/22 02:07 Carbon Dioxide 26 mmol/L (22-29) 05/22/22 02:07 Anion Gap 17.0 (5-19) 05/22/22 02:07 BUN 24 mg/dL (8-23) H 05/22/22 02:07 Creatinine 1.2 mg/dL (0.7-1.2) 05/22/22 02:07 GFR Calculation Not Reportable 05/22/22 02:07 Glucose 127 mg/dL (65-115) H 05/22/22 02:07 Calculated Osmolality 310 mOsm/kg (285-295) H 05/22/22 02:07 Lactate 1.0 mmol/L (0.5-2.2) 05/22/22 02:30 Calcium 9.4 mg/dL (8.5-10.5) 05/22/22 02:07 Total Bilirubin 0.4 mg/dL (0.15-1.2) 05/22/22 02:07 AST 13 U/L (0-40) 05/22/22 02:07 ALT 8 U/L (0-41) 05/22/22 02:07 Alkaline Phosphatase 77 IU/L (40-130) 05/22/22 02:07 C-Reactive Protein 25.6 mg/L (0.0-4.9) H 05/22/22 02:07 Total Protein 6.8 g/dL (6.6-8.7) 05/22/22 02:07 Albumin 3.7 g/dL (3.5-5.2) 05/22/22 02:07 Globulin 3.1 g/dL (1.3-4.6) 05/22/22 02:07 Urine Color Yellow (Yellow) 05/22/22 04:39 Urine Appearance Clear (CLEAR) 05/22/22 04:39 Urine pH 5 (5-7) 05/22/22 04:39 Ur Specific [place] 1.025 (1.005-1.030) 05/22/22 04:39 Urine Protein Neg (Negative) 05/22/22 04:39 Urine Glucose (UA) Norm (Normal) 05/22/22 04:39 Urine Ketones Negative (Negative) 05/22/22 04:39 Urine Blood Neg (Negative) 05/22/22 04:39 Urine Nitrate Negative (Negative) 05/22/22 04:39 Urine Bilirubin 1+ (Negative) H 05/22/22 04:39 Urine Urobilinogen 1 mg/dL (Negative) H 05/22/22 04:39 Ur Leukocyte Esterase Negative (Negative) 05/22/22 04:39 Coronavirus 229E (PCR) Not detected (NOT DETECT) 05/22/22 03:14 SARS-CoV-2 (PCR) Not detected (NOT DETECT) 05/22/22 03:14 Discharge Plan Discharge Patient Disposition: Home Clinical Impression: Nontraumatic cerebral edema Condition: Stable Prescriptions: New morphine 20 mg/5 mL (4 mg/mL) solution 5 mg PO Q6H PRN (Reason: pain) Qty: 100 0RF No Action donepezil 10 mg tablet 10 mg PO DAILY@07 0RF finasteride 5 mg tablet 5 mg PO DAILY@19 0RF gabapentin 100 mg capsule 100 mg PO DAILY@19 0RF levothyroxine 25 mcg capsule 25 mcg PO DAILY@05 0RF sertraline 25 mg tablet 75 mg PO DAILY@19 0RF tamsulosin 0.4 mg capsule 0.4 mg PO DAILY@19 0RF metoprolol tartrate 25 mg tablet 25 mg PO BID 0RF nitroglycerin [Nitrostat] 0.4 mg tablet, sublingual 0.4 mg SUBLINGUAL Q5M PRN (Reason: Chest Pain) 0RF clonidine HCl 0.1 mg Tablet 0.1 mg PO Q8H PRN (Reason: Hypertension) 0RF Rx Instructions: for bp >165/90 acetaminophen 325 mg Tablet 650 mg PO Q4H PRN (Reason: Pain) 0RF Rx Instructions: not to exceed 3000mg/24h ondansetron HCl [Zofran] 4 mg Tablet 4 mg PO Q4H PRN (Reason: Nausea) 0RF hydrocodone-acetaminophen 10-325 mg Tablet 1 tab PO Q8H PRN (Reason: Pain) 0RF magnesium hydroxide [Milk of Magnesia] 400 mg/5 mL Suspension 30 ml PO DAILY PRN (Reason: Constipation) 0RF bisacodyl 10 mg Suppository 10 mg MD DAILY PRN (Reason: Constipation) 0RF Rx Instructions: if no results from mom Enema 19-7 gram/118 mL Enema 118 ml MD DAILY PRN (Reason: Constipation) 0RF bisacodyl 5 mg Tablet 10 mg PO DAILY PRN (Reason: Constipation) 0RF loratadine 10 mg Tablet 10 mg PO DAILY@07 0RF Ocuvite Adult 50 Plus 250-5-1 mg Capsule 1 cap PO DAILY@07 0RF Xanax 0.25 mg Tablet 0.25 mg PO TID@05,11,17 0RF Lumigan 0.01 % Drops 1 drp OPHTHALMIC (EYE) DAILY@19 0RF Discharge Orders: Discharge ED (Routine); Ordered 05/22/22 Ordered By: Daniel Nam Referrals: Teena Funes MD [Primary Care Provider] - 1-3 days Patient Instructions: Opioid Safety Activity Restrictions/Additional Instructions: We spoke with the family about making this patient a comfort care patient. They agree. Medications as needed for pain or dyspnea. Return for any concerning symptoms. Coding Level of Care Code ED Flame Channeler for Chg Fwd Exam Problem Focused
[2022-05-22] MEDS: dexamethasone 10 mg/mL INJ IVP (08:16)
[2022-05-22 09:06] VITALS: BP 186/108; PULSE 95; RESP 16; O2SAT 94
[2022-05-22 13:33] VITALS: BP 186/108; PULSE 95; RESP 16; O2SAT 94
== END 2022-05-22 11:17 | disposition home or self-care (01) ==
PROVIDERS: Emergency Provider Emergency Medicine; PCP Family Medicine
DX: G93.6 Cerebral edema (principal); G30.9 Alzheimer's disease, unspecified; F02.80 Dementia in other diseases classified elsewhere, unspecified severity, without behavioral disturbance, psychotic disturbance, mood disturbance, and anxiety; Z86.73 Personal history of transient ischemic attack (TIA), and cerebral infarction without residual deficits; E78.5 Hyperlipidemia, unspecified; Z20.822 Contact with and (suspected) exposure to COVID-19
CPT/HCPCS: 36600; 70450; 71045; 80053; 81003; 82803; 83605; 85025; 86140; 87635; 93005; 96361; 96374; 99284; J1100; J7030